=== PATIENT | male | born 1965 | race Caucasian/White ===

== ENCOUNTER 2017-07-15 11:07 | Outpatient (CLI) | payer BC ==
--- NOTE | 2017-07-15 13:41 | Diagnostic Imaging Report ---
Indication: Left-sided testicular pain x1 month Technique: US Testicular Scrotum Comparison: None Findings: Testicular size and symmetric. The right testicle measures 4.4 x 2.3 x 3.2 cm. The left testicle measures 4.4 x 2.4 x 3.4 cm. Both testicles demonstrate normal, homogeneous echogenicity. No focal testicular mass lesions are appreciated. Normal color and Doppler flow seen in the bilateral testicles. There is no evidence of testicular torsion. There are small bilateral varicoceles. Likely small bilateral hydroceles. Hydrocele on the right noted to have some internal echoes which may be artifactual within range of normal. There is a likely small epididymal cyst on the left. IMPRESSION: No evidence of testicular torsion. No testicular mass identified. Small bilateral varicoceles. Likely small bilateral hydroceles.
== END 2017-07-15 13:07 | disposition home or self-care (01) ==
LOC: RAD 11:07
DX: N50.812 Left testicular pain (principal); N43.3 Hydrocele, unspecified
CPT/HCPCS: 76870

== ENCOUNTER 2017-10-06 16:16 | Emergency (ER) | payer BC ==
[~2017-10-06] VITALS: Ht 175.3 cm; Wt 75.7 kg
[2017-10-06] MEDS ORDERED: CRESTOR40 MG ORAL (16:42)
[2017-10-06 16:50] VITALS: BP 142/74
[2017-10-06 17:57] LABS: APPEARANCE,URINE SLIGHTLY CLOUDY; BILIRUBIN, URINE NEGATIVE (NEGATIVE); COLOR,URINE AMBER; GLUCOSE, URINE (UA) NEGATIVE (NEGATIVE); KETONES,URINE 1+ (NEGATIVE); LEUKOCYTE ESTERASE ,URINE 1+ (NEGATIVE); NITRITE,URINE NEGATIVE (NEGATIVE); PH,URINE 6.5 (4.5-8.0); PROTEIN,URINE 2+ (NEGATIVE); UROBILINOGEN,URINE 1 MG/DL (0.0-1.0)
[2017-10-06 18:05] LABS: ANION GAP 10 mmol/L (5-15); BLOOD UREA NITROGEN 8 mg/dL (7-18); CALCIUM 9.6 MG/DL (8.5-10.1); CARBON DIOXIDE 28 MMOL/L (21-32); CHLORIDE 98 MMOL/L (98-107); POTASSIUM 3.4 MMOL/L (3.5-5.1); SODIUM 136 MMOL/L (136-145)
[2017-10-06 18:09] LABS: ALANINE AMINOTRANSFERASE 40 U/L (12-78); ALBUMIN 4.1 G/DL (3.4-5.0); ALKALINE PHOSPHATASE 66 U/L (46-116); ASPARTATE AMINO TRANSFERASE 31 U/L (15-37); BILIRUBIN,TOTAL 0.5 MG/DL (0.2-1.0); CREATINE KINASE 188 U/L (26-308)
[2017-10-06 18:21] LABS: BASOPHILS % (AUTO) 0.4 % (0.0-2.0); EOSINOPHILS % (AUTO) 0.1 % (0.0-3.0); HEMATOCRIT 45.8 % (42.0-52.0); HEMOGLOBIN 16.3 G/DL (14.2-18.0); LYMPHOCYTES % (AUTO) 12.2 % (20.0-45.0); MEAN CORPUSCULAR VOLUME 88 FL (80-99); MONOCYTES % (AUTO) 8.6 % (1.0-10.0); NEUTROPHILS % (AUTO) 78.7 % (45.0-75.0); PLATELET COUNT 162 K/UL (150-450); RED BLOOD COUNT 5.18 M/UL (4.70-6.10); RED CELL DISTRIBUTION WIDTH 11.7 % (11.6-14.8); WHITE BLOOD COUNT 8.8 K/UL (4.8-10.8)
[2017-10-06 18:45] VITALS: BP 137/81
--- NOTE | 2017-10-06 19:09 | Emergency Room Report ---
History of Present Illness General Chief Complaint: Fever Source: Patient Present Illness HPI 52 YO male presents to the ED C/o 12/30 in severity epigastric pain that is cramping in nature with associated N/V x 2 days. pt. also reports body aches and exacerbation of his chronic neck pain. pt. denies JEFFERY or photophobia. Denies diarrhea. Reports constipation since Thursday. denies blood in vomit, stool or dark tarry stools. He Denies trauma or fall. Denies numbness tingling or loss of sensation or gross motor movements of the extremities, incontinence of bowel or bladder. Denies CP, Palpitations, LOC, AMS, dizziness, Changes in Vision, weakness or a sudden severe headache. Allergies: Coded Allergies: LATEX (Verified Allergy, Unknown, 10/06/17) PENICILLINS (Verified Allergy, Unknown, 10/06/17) Patient History Past Medical History: see triage record Past Surgical History: none Pertinent Family History: none Reviewed Nursing Documentation: PMH: Agreed; PSxH: Agreed Review of Systems All Other Systems: negative except mentioned in HPI Physical Exam Vital Signs Date Time Temp Pulse Resp B/P (MAP) Pulse Ox O2 Delivery O2 Flow Rate FiO2 10/06/17 16:37 98.4 89 18 142/74 96 Room Air 98.4 Sp02 EP Interpretation: reviewed, normal General Appearance: no apparent distress, alert, GCS 15, non-toxic Head: normocephalic, atraumatic Eyes: bilateral eye normal inspection, bilateral eye PERRL ENT: hearing grossly normal, normal voice Neck: full range of motion, no meningismus, tender midline, other Respiratory: chest non-tender, lungs clear, normal breath sounds, no wheezing, speaking full sentences Cardiovascular #1: regular rate, rhythm, normal capillary refill Cardiovascular #2: 2+ radial (R), 2+ radial (L) Gastrointestinal: normal bowel sounds, non tender - no pain or tenderness at this time, soft, non-distended, no guarding Rectal: deferred Genitourinary: normal inspection, no CVA tenderness Musculoskeletal: back normal, gait/station normal, normal range of motion, non- tender Neurologic: alert, oriented x3, responsive, motor strength/tone normal, sensory intact, normal gait, speech normal, grossly normal Psychiatric: judgement/insight normal Skin: normal color, no rash, warm/dry, well hydrated Lymphatic: no adenopathy Medical Decision Making PA Attestation Dr. Rodríguez is my supervising Physician whom patient management has been discussed with. Diagnostic Impression: Primary Impression: Abdominal pain Qualified Codes: R10.13 - Epigastric pain Additional Impressions: Nausea & vomiting Qualified Codes: R11.2 - Nausea with vomiting, unspecified Dehydration, mild ER Course 52 YO male presents to the ED C/o 12/30 in severity epigastric pain that is cramping in nature with associated N/V x 2 days. pt. also reports body aches and exacerbation of his chronic neck pain. pt. denies JEFFERY or photophobia. Denies diarrhea. Reports constipation since Thursday. denies blood in vomit, stool or dark tarry stools. He Denies trauma or fall. Denies numbness tingling or loss of sensation or gross motor movements of the extremities, incontinence of bowel or bladder. Denies CP, Palpitations, LOC, AMS, dizziness, Changes in Vision, weakness or a sudden severe headache. Ddx considered but are not limited to Diverticulitis, acute appy, diarrhea,UC, PUD, GE, pancreatitis, gallstone Vital signs: are WNL, pt. is afebrile H&PE are most consistent with suspected gastritis will do lab work and consider imaging if indicated by labs. PE pt. is NAD non-toxic in appearance. No evidence of spinal chord compression or epidural abscess. pain located in area of previous chronic neck pain is per pt. ORDERS: -CBC, CMP, lipase, lactic acid, All WNL/unremarkable -UA: RBC's and occult blood, mucus as well, d/w attending physician UTI unlikely. ED INTERVENTIONS: -- 1000NS, GI Cocktail Pt continues to remain stable NAD, no complaints of pain at this time. able to tolerate oral fluids. stable for close outpatient follow up. DISCHARGE: At this time pt. is stable for d/c to home. Will provide printed patient care instructions, and any necessary prescriptions. Care plan and follow up instructions have been discussed with the patient prior to discharge. Labs Test 10/06/17 17:14 10/06/17 17:24 White Blood Count 8.8 K/UL (4.8-10.8) Red Blood Count 5.18 M/UL (4.70-6.10) Hemoglobin 16.3 G/DL (14.2-18.0) Hematocrit 45.8 % (42.0-52.0) Mean Corpuscular Volume 88 FL (80-99) Mean Corpuscular Hemoglobin 31.4 PG (27.0-31.0) Mean Corpuscular Hemoglobin Concent 35.5 G/DL (32.0-36.0) Red Cell Distribution Width 11.7 % (11.6-14.8) Platelet Count 162 K/UL (150-450) Mean Platelet Volume 6.1 FL (6.5-10.1) Neutrophils (%) (Auto) 78.7 % (45.0-75.0) Lymphocytes (%) (Auto) 12.2 % (20.0-45.0) Monocytes (%) (Auto) 8.6 % (1.0-10.0) Eosinophils (%) (Auto) 0.1 % (0.0-3.0) Basophils (%) (Auto) 0.4 % (0.0-2.0) Sodium Level 136 MMOL/L (136-145) Potassium Level 3.4 MMOL/L (3.5-5.1) Chloride Level 98 MMOL/L (98-107) Carbon Dioxide Level 28 MMOL/L (21-32) Anion Gap 10 mmol/L (5-15) Blood Urea Nitrogen 8 mg/dL (7-18) Creatinine 1.0 MG/DL (0.55-1.30) Estimat Glomerular Filtration Rate > 60 mL/min (>60) Glucose Level 100 MG/DL (74-106) Lactic Acid Level 1.10 mmol/L (0.4-2.0) Calcium Level 9.6 MG/DL (8.5-10.1) Total Bilirubin 0.5 MG/DL (0.2-1.0) Aspartate Amino Transf (AST/SGOT) 31 U/L (15-37) Alanine Aminotransferase (ALT/SGPT) 40 U/L (12-78) Alkaline Phosphatase 66 U/L (46-116) Total Creatine Kinase 188 U/L (26-308) Total Protein 8.3 G/DL (6.4-8.2) Albumin 4.1 G/DL (3.4-5.0) Globulin 4.2 g/dL Albumin/Globulin Ratio 1.0 (1.0-2.7) Lipase 161 U/L (73-393) Urine Color [place] Urine Appearance Slightly cloudy Urine pH 6.5 (4.5-8.0) Urine Specific [place] 1.010 (1.005-1.035) Urine Protein 2+ (NEGATIVE) Urine Glucose (UA) Negative (NEGATIVE) Urine Ketones 1+ (NEGATIVE) Urine Occult Blood 5+ (NEGATIVE) Urine Nitrite Negative (NEGATIVE) Urine Bilirubin Negative (NEGATIVE) Urine Ictotest Negative Urine Urobilinogen 1 MG/DL (0.0-1.0) Urine Leukocyte Esterase 1+ (NEGATIVE) Urine RBC 30-40 /HPF (0 - 0) Urine WBC 2-4 /HPF (0 - 0) Urine Squamous Epithelial Cells Occasional /LPF Urine Bacteria Few /HPF (NONE) Urine Mucus Moderate /LPF (NONE/OCC) Last Vital Signs Date Time Temp Pulse Resp B/P (MAP) Pulse Ox O2 Delivery O2 Flow Rate FiO2 10/06/17 16:50 98.4 96 18 142/74 96 Room Air 98.4 Disposition: HOME, SELF-CARE Condition: Stable Scripts Mag Hydrox/Al Hydrox/Simeth (ALUM-MAG HYDROXIDE-SIMETH LIQ) 360 Ml Oral.susp 10 ML PO BID, #360 ML Prov: Brea Ibanez 10/06/17 Docusate Sodium* (COLACE*) 100 Mg Capsule 100 MG ORAL THREE TIMES A DAY for 7 Days, #21 CAP Prov: Brea Ibanez 10/06/17 Referrals: JEAN CLAUDE SPICER D.O. (PCP) Patient Instructions: Abdominal Pain, Adult, [id number], Dehydration, Adult, [id number], Nausea and Vomiting, Adult, [id number] Additional Instructions: Take medications as directed. Follow up with a Primary Care Provider in 3-5 days, even if your symptoms have resolved. --Please review list of primary care clinics, if you do not already have a primary care provider Return sooner to ED if new symptoms occur, or current symptoms become worse. - Please note that this Emergency Department Report was dictated using [email or web address] technology software, occasionally this can lead to erroneous entry secondary to interpretation by the dictation equipment. Brea Ibanez Oct 06, 2017 19:09
[2017-10-06] MEDS ORDERED: COLACE100 MG ORAL (19:11)
[2017-10-06] MEDS ORDERED: ALUM-MAG HYDRO360 ML PO (19:11)
[2017-10-06] MEDS ORDERED: Mylanta II UD 30ml ORAL ONE (19:15)
[2017-10-06] MEDS ORDERED: Lidocaine 2% Visc 15ml soln ORAL ONE (19:15)
[2017-10-06 19:24] VITALS: BP 137/81
--- NOTE | 2017-10-07 08:57 | Diagnostic Imaging Report ---
Indication: Pain Technique: Supine view of the abdomen Comparison: none Findings: Bowel gas pattern is unremarkable. No unusual masses or calcifications. The bones are unremarkable Impression: Negative
== END 2017-10-06 19:24 | disposition home or self-care (01) ==
LOC: EMR 17:00
DX: R10.13 Epigastric pain (principal); R11.2 Nausea with vomiting, unspecified; E86.0 Dehydration; Z88.0 Allergy status to penicillin; Z91.040 Latex allergy status
CPT/HCPCS: 36415; 74018; 80053; 81003; 82550; 83605; 83690; 85025; 87040; 99284; J2405; S0028

== ENCOUNTER 2017-10-07 13:39 | Outpatient (CLI) | payer BC ==
[~2017-10-07 13:39] MED LIST: ALUM-MAG HYDRO360 ML PO; COLACE100 MG ORAL; CRESTOR40 MG ORAL
--- NOTE | 2017-10-07 16:17 | Diagnostic Imaging Report ---
Indication: Pelvic pain and hematuria Technique: Grayscale and duplex images of the kidneys, retroperitoneum, and bladder were obtained. Comparison: none Findings: Right kidney measures 10.9 cm in length. Left kidney measures 10.1 cm in length. Both kidneys demonstrate normal echogenicity. No hydronephrosis. Bright echoes in the renal sinuses are probably artifactual but could indicate small calcifications.. Normal inferior vena cava. Bladder is normal. Impression: Negative for hydronephrosis Bright echoes in the renal sinuses, probably artifactual but could indicate tiny nonobstructive calculi.
== END 2017-10-07 15:39 | disposition home or self-care (01) ==
LOC: ULS 13:39
DX: R10.2 Pelvic and perineal pain (principal); R31.9 Hematuria, unspecified
CPT/HCPCS: 76770

== ENCOUNTER 2017-10-08 15:47 | Inpatient (IN) | payer BC ==
[~2017-10-08] VITALS: Ht 175.3 cm; Wt 70.3 kg
--- NOTE | 2017-10-08 16:14 | Emergency Room Report ---
History of Present Illness General Chief Complaint: Nausea, Vomiting, and Diarrhea Source: Patient Present Illness HPI Patient present with complaints of persistent vomiting and diarrhea Patient has been here 2 days in a row with similar complaint He feels that his symptoms are persisting Patient has increased bloating sensation diffusely Has had several episodes of vomiting Reports that he is not able to keep any fluids down Denies any flank pain Denies any neck pain or photophobia Patient also has elevated fevers intermittently after Tylenol/Motrin were off Patient has had previous umbilical hernia surgery Allergies: Coded Allergies: LATEX (Verified Allergy, Unknown, 10/06/17) PENICILLINS (Verified Allergy, Unknown, 10/06/17) Patient History Past Medical History: see triage record Pertinent Family History: none Reviewed Nursing Documentation: PMH: Agreed; PSxH: Agreed Nursing Documentation-PMH Past Medical History: No History, Except For Review of Systems All Other Systems: negative except mentioned in HPI Physical Exam Vital Signs Date Time Temp Pulse Resp B/P (MAP) Pulse Ox O2 Delivery O2 Flow Rate FiO2 10/08/17 15:58 99.6 104 20 128/85 98 Room Air 99.7 Sp02 EP Interpretation: reviewed, normal General Appearance: mild distress - Appears uncomfortable Head: normocephalic, atraumatic Eyes: bilateral eye PERRL, bilateral eye EOMI ENT: dry mucus membranes Neck: supple, thyroid normal Respiratory: lungs clear, normal breath sounds Cardiovascular #1: normal peripheral pulses, regular rate, rhythm, no edema Gastrointestinal: other - Patient has a soft abdomen however diffusely uncomfortable on palpation, somewhat hyperactive bowel sounds are also noted Musculoskeletal: normal inspection Neurologic: alert, oriented x3, responsive Skin: other - Poor skin turgor Lymphatic: no adenopathy Medical Decision Making Diagnostic Impression: Primary Impression: Vomiting Additional Impression: Nausea, vomiting, and diarrhea ER Course With the history exam and presentation, multiple differentials considered, including but not limited to appendicitis, gastritis, cholecystitis, diverticulitis CT imaging shows questionable lower lobe infiltrate Also nonspecific abdominal findings It was mentioned that the appendix was on the upper limits of normal however no surrounding inflammation Patient will have general surgery consultation IV antibiotics were initiated and admitted for further care Labs Test 10/08/17 16:35 White Blood Count 10.3 K/UL (4.8-10.8) Red Blood Count 4.43 M/UL (4.70-6.10) Hemoglobin 14.1 G/DL (14.2-18.0) Hematocrit 38.1 % (42.0-52.0) Mean Corpuscular Volume 86 FL (80-99) Mean Corpuscular Hemoglobin 31.8 PG (27.0-31.0) Mean Corpuscular Hemoglobin Concent 37.1 G/DL (32.0-36.0) Red Cell Distribution Width 11.3 % (11.6-14.8) Platelet Count 152 K/UL (150-450) Mean Platelet Volume 5.8 FL (6.5-10.1) Neutrophils (%) (Auto) 85.6 % (45.0-75.0) Lymphocytes (%) (Auto) 7.4 % (20.0-45.0) Monocytes (%) (Auto) 6.3 % (1.0-10.0) Eosinophils (%) (Auto) 0.0 % (0.0-3.0) Basophils (%) (Auto) 0.7 % (0.0-2.0) Urine Color [place] Urine Appearance Clear Urine pH 9 (4.5-8.0) Urine Specific [place] 1.015 (1.005-1.035) Urine Protein 2+ (NEGATIVE) Urine Glucose (UA) Negative (NEGATIVE) Urine Ketones 4+ (NEGATIVE) Urine Occult Blood 4+ (NEGATIVE) Urine Nitrite Negative (NEGATIVE) Urine Bilirubin Negative (NEGATIVE) Urine Urobilinogen 1 MG/DL (0.0-1.0) Urine Leukocyte Esterase 1+ (NEGATIVE) Urine RBC 20-30 /HPF (0 - 0) Urine WBC 0-2 /HPF (0 - 0) Urine Squamous Epithelial Cells None /LPF (NONE/OCC) Urine Bacteria Occasional /HPF (NONE) Sodium Level 133 MMOL/L (136-145) Potassium Level 3.0 MMOL/L (3.5-5.1) Chloride Level 96 MMOL/L (98-107) Carbon Dioxide Level 22 MMOL/L (21-32) Anion Gap 16 mmol/L (5-15) Blood Urea Nitrogen 9 mg/dL (7-18) Creatinine 1.0 MG/DL (0.55-1.30) Estimat Glomerular Filtration Rate > 60 mL/min (>60) Glucose Level 110 MG/DL (74-106) Calcium Level 9.3 MG/DL (8.5-10.1) Total Bilirubin 0.7 MG/DL (0.2-1.0) Aspartate Amino Transf (AST/SGOT) 55 U/L (15-37) Alanine Aminotransferase (ALT/SGPT) 56 U/L (12-78) Alkaline Phosphatase 71 U/L (46-116) Total Protein 7.6 G/DL (6.4-8.2) Albumin 3.4 G/DL (3.4-5.0) Globulin 4.2 g/dL Albumin/Globulin Ratio 0.8 (1.0-2.7) Lipase 108 U/L (73-393) Rhythm Strip Diag. Results EP Interpretation: yes Rate: 77 Rhythm: NSR, no PVC's, no ectopy CT/MRI/US Diagnostic Results CT/MRI/US Diagnostic Results : Impression CT abdomen pelvisFluid-filled proximal small bowel. Difficult to exclude mild enteritis. No discrete transition point to indicate SBO. Colonic diverticulawithout diverticulitis Appendix is at the upper limits of normal for size, but no adjacent stranding to indicate appendicitis. Thickened distal esophagus. Incompletelyassessed groundglass infiltrate in the right lower lobe. Trace pericardial effusion Last Vital Signs Date Time Temp Pulse Resp B/P (MAP) Pulse Ox O2 Delivery O2 Flow Rate FiO2 10/08/17 15:58 99.6 104 20 128/85 98 Room Air 99.7 Status: improved Disposition: ADMITTED INPATIENT Condition: Serious Perla Mack DO Oct 08, 2017 16:14
[2017-10-08] MEDS ORDERED: Isovue-300 100ml vial INJ PRN (16:15)
[2017-10-08] MEDS ORDERED: Morphine Sulfate 4mg/ml Inj IVP ONE (16:15)
[2017-10-08] MEDS ORDERED: LORazepam Inj 2mg/ml 1ml IV ONE (16:15)
[2017-10-08 17:12] LABS: HEMATOCRIT 38.1 % (42.0-52.0); HEMOGLOBIN 14.1 G/DL (14.2-18.0); MEAN CORPUSCULAR VOLUME 86 FL (80-99); PLATELET COUNT 152 K/UL (150-450); RED BLOOD COUNT 4.43 M/UL (4.70-6.10); RED CELL DISTRIBUTION WIDTH 11.3 % (11.6-14.8); WHITE BLOOD COUNT 10.3 K/UL (4.8-10.8)
[2017-10-08 17:13] LABS: LYMPHOCYTES % (AUTO) 7.4 % (20.0-45.0); MONOCYTES % (AUTO) 6.3 % (1.0-10.0); NEUTROPHILS % (AUTO) 85.6 % (45.0-75.0)
[2017-10-08 17:14] LABS: BASOPHILS % (AUTO) 0.7 % (0.0-2.0)
[2017-10-08 17:28] VITALS: BP 128/85
[2017-10-08 17:28] LABS: APPEARANCE,URINE CLEAR; BILIRUBIN, URINE NEGATIVE (NEGATIVE); GLUCOSE, URINE (UA) NEGATIVE (NEGATIVE); KETONES,URINE 4+ (NEGATIVE); LEUKOCYTE ESTERASE ,URINE 1+ (NEGATIVE); NITRITE,URINE NEGATIVE (NEGATIVE); PH,URINE 9 (4.5-8.0); PROTEIN,URINE 2+ (NEGATIVE); UROBILINOGEN,URINE 1 MG/DL (0.0-1.0)
[2017-10-08 17:32] LABS: COLOR,URINE YELLOW
[2017-10-08 17:34] LABS: ANION GAP 16 mmol/L (5-15); BLOOD UREA NITROGEN 9 mg/dL (7-18); CALCIUM 9.3 MG/DL (8.5-10.1); CARBON DIOXIDE 22 MMOL/L (21-32); CHLORIDE 96 MMOL/L (98-107); SODIUM 133 MMOL/L (136-145)
[2017-10-08 17:45] LABS: ALANINE AMINOTRANSFERASE 56 U/L (12-78); ALBUMIN 3.4 G/DL (3.4-5.0); ALBUMIN/GLOBULIN RATIO 0.8 (1.0-2.7); ALKALINE PHOSPHATASE 71 U/L (46-116); ASPARTATE AMINO TRANSFERASE 55 U/L (15-37); BILIRUBIN,TOTAL 0.7 MG/DL (0.2-1.0)
[2017-10-08 20:00] VITALS: BP 132/75
--- NOTE | 2017-10-08 20:42 | Consultation ---
History of Present Illness General Date patient seen: Oct 08, 2017 Chief Complaint: Nausea, Vomiting, and Diarrhea Reason for Consultation: abdominal pain, n/v Present Illness HPI 52 year old male otherwise healthy presented to ED with complaints of abdominal pain, nausea, emesis, dehydration. States that 12 days ago he had developed vague generalized abdominal discomfort with associated nausea and emesis. Since he has come to ED for evaluation on two separate occasions and has been given IV fluids and discharged once symptoms resolved. He returns again today with similar complaints but states that now he cannot hold down any liquids and has fever and chills. Possible SBO. admitted for resuscitation and care. surgery called to evaluate. patient seen, chart reviewed, patient examined. history of umbilical hernia repair with mesh a few years ago but recurrence noted. inguinal hernia surgery when he was 7yo. has been constipated recently. used enema and evacuated foul smelling stool today prior to ED visit. Allergies: Coded Allergies: LATEX (Verified Allergy, Unknown, 10/06/17) PENICILLINS (Verified Allergy, Unknown, 10/06/17) Medication History Scheduled Docusate Sodium* (Colace*), 100 MG ORAL THREE TIMES A DAY Mag Hydrox/Al Hydrox/Simeth (Alum-Mag Hydroxide-Simeth Liq), 10 ML PO BID Rosuvastatin Calcium* (Crestor*), 40 MG ORAL DAILY, (Reported) Patient History History Provided By: Patient, Medical Record, PMD Healthcare decision maker Resuscitation status Advanced Directive on File Past Medical/Surgical History Past Medical/Surgical History: (1) History of umbilical hernia repair (2) SBO (small bowel obstruction) (3) Nausea, vomiting, and diarrhea (4) Vomiting Review of Systems All Other Systems: negative except mentioned in HPI Physical Exam General Appearance: no apparent distress, alert Lines, tubes and drains: peripheral HEENT: normocephalic, atraumatic, PERRL Neck: normal inspection Respiratory/Chest: normal breath sounds, no respiratory distress, no accessory muscle use Cardiovascular/Chest: regular rhythm Abdomen: non tender, soft, hypoactive bowel sounds, distended, hernia Genitourinary/Rectal: normal genital exam Extremities: normal inspection, no calf tenderness Neurologic: alert, oriented x 3, responsive Last 24 Hour Vital Signs Date Time Temp Pulse Resp B/P (MAP) Pulse Ox O2 Delivery O2 Flow Rate FiO2 10/08/17 19:28 99.0 100 20 128/85 98 Room Air 99.0 10/08/17 17:28 99.0 100 20 128/85 98 Room Air 99.0 10/08/17 17:03 99.0 10/08/17 16:33 99.6 10/08/17 15:58 99.6 104 20 128/85 98 Room Air 99.7 Laboratory Tests Test 10/08/17 16:35 White Blood Count 10.3 K/UL (4.8-10.8) Red Blood Count 4.43 M/UL (4.70-6.10) L Hemoglobin 14.1 G/DL (14.2-18.0) L Hematocrit 38.1 % (42.0-52.0) L Mean Corpuscular Volume 86 FL (80-99) Mean Corpuscular Hemoglobin 31.8 PG (27.0-31.0) H Mean Corpuscular Hemoglobin Concent 37.1 G/DL (32.0-36.0) H Red Cell Distribution Width 11.3 % (11.6-14.8) L Platelet Count 152 K/UL (150-450) Mean Platelet Volume 5.8 FL (6.5-10.1) L Neutrophils (%) (Auto) 85.6 % (45.0-75.0) H Lymphocytes (%) (Auto) 7.4 % (20.0-45.0) L Monocytes (%) (Auto) 6.3 % (1.0-10.0) Eosinophils (%) (Auto) 0.0 % (0.0-3.0) Basophils (%) (Auto) 0.7 % (0.0-2.0) Urine Color Yellow Urine Appearance Clear Urine pH 9 (4.5-8.0) Urine Specific [place] 1.015 (1.005-1.035) Urine Protein 2+ (NEGATIVE) H Urine Glucose (UA) Negative (NEGATIVE) Urine Ketones 4+ (NEGATIVE) H Urine Occult Blood 4+ (NEGATIVE) H Urine Nitrite Negative (NEGATIVE) Urine Bilirubin Negative (NEGATIVE) Urine Urobilinogen 1 MG/DL (0.0-1.0) H Urine Leukocyte Esterase 1+ (NEGATIVE) H Urine RBC 20-30 /HPF (0 - 0) H Urine WBC 0-2 /HPF (0 - 0) Urine Squamous Epithelial Cells None /LPF (NONE/OCC) Urine Bacteria Occasional /HPF (NONE) Sodium Level 133 MMOL/L (136-145) L Potassium Level 3.0 MMOL/L (3.5-5.1) L Chloride Level 96 MMOL/L (98-107) L Carbon Dioxide Level 22 MMOL/L (21-32) Anion Gap 16 mmol/L (5-15) H Blood Urea Nitrogen 9 mg/dL (7-18) Creatinine 1.0 MG/DL (0.55-1.30) Estimat Glomerular Filtration Rate > 60 mL/min (>60) Glucose Level 110 MG/DL (74-106) H Calcium Level 9.3 MG/DL (8.5-10.1) Total Bilirubin 0.7 MG/DL (0.2-1.0) Aspartate Amino Transf (AST/SGOT) 55 U/L (15-37) H Alanine Aminotransferase (ALT/SGPT) 56 U/L (12-78) Alkaline Phosphatase 71 U/L (46-116) Total Protein 7.6 G/DL (6.4-8.2) Albumin 3.4 G/DL (3.4-5.0) Globulin 4.2 g/dL Albumin/Globulin Ratio 0.8 (1.0-2.7) L Lipase 108 U/L (73-393) Height (Feet): 5 Height (Inches): 9.00 Weight (Pounds): 155 Medications Current Medications Medications (Trade) Dose Ordered Sig/Mark Route PRN Reason Start Time Stop Time Status Last Admin Dose Admin Iopamidol (Isovue-300 100ml) 100 ml NOW PRN INJ Radiology Procedure 10/08/17 16:15 Assessment/Plan Problem List: (1) SBO (small bowel obstruction) Assessment & Plan: 52 year old male with possible partial SBO. afebrile, HD stable, labs as above. exam with mild distention, hypoactive bowel sounds, umbilical hernia, no tenderness noted. -NPO -IV fluids -bowel rest -upper GI with small bowel study tomorrow -will follow with recs thank you for this consultation ICD Codes: K56.609 - Unspecified intestinal obstruction, unspecified as to partial versus complete obstruction SNOMED: 190984913 (2) Nausea, vomiting, and diarrhea ICD Codes: R11.2 - Nausea with vomiting, unspecified; R19.7 - Diarrhea, unspecified SNOMED: [id number] Status: stable Gucci Scales Oct 08, 2017 20:41
[2017-10-08] MEDS ORDERED: Mylanta II UD 30ml ORAL PRN (20:45)
[2017-10-08] MEDS ORDERED: Milk of Magnesia 30ml Ud ORAL PRN (20:45)
[2017-10-08] MEDS ORDERED: Morphine Sulfate 2mg/ml Inj IVP PRN (20:45)
[2017-10-08] MEDS: Heparin 5000 units/ml inj SUBQ SCH (21:00)
[2017-10-08] MEDS: Morphine Sulfate 2mg/ml Inj IVP PRN (21:28)
[2017-10-08] MEDS ORDERED: Acetaminophen 650 MG SUPP RECTAL PRN (22:15)
[2017-10-08] MEDS: D5 1/2NS w/KCl 40meq 1000ml 1,000 ML IV SCH (22:27)
[2017-10-09] VITALS: BP 127/72
[2017-10-09] MEDS: Metoclopramide 10mg/2ml Inj IVP PRN ×2 (03:58→12:58)
[2017-10-09 04:00] VITALS: BP 107/73
[2017-10-09 07:02] LABS: BASOPHILS % (AUTO) 0.2 % (0.0-2.0); EOSINOPHILS % (AUTO) 0.1 % (0.0-3.0); HEMATOCRIT 40.1 % (42.0-52.0); HEMOGLOBIN 14.1 G/DL (14.2-18.0); LYMPHOCYTES % (AUTO) 16.6 % (20.0-45.0); MEAN CORPUSCULAR VOLUME 89 FL (80-99); MONOCYTES % (AUTO) 9.4 % (1.0-10.0); NEUTROPHILS % (AUTO) 73.7 % (45.0-75.0); PLATELET COUNT 153 K/UL (150-450); RED BLOOD COUNT 4.52 M/UL (4.70-6.10); RED CELL DISTRIBUTION WIDTH 11.6 % (11.6-14.8); WHITE BLOOD COUNT 8.4 K/UL (4.8-10.8)
[2017-10-09 07:11] LABS: INR 1.1 (0.9-1.1)
[2017-10-09 07:39] LABS: ALANINE AMINOTRANSFERASE 53 U/L (12-78); ALBUMIN/GLOBULIN RATIO 0.8 (1.0-2.7); ALKALINE PHOSPHATASE 63 U/L (46-116); ANION GAP 8 mmol/L (5-15); ASPARTATE AMINO TRANSFERASE 44 U/L (15-37); BILIRUBIN,TOTAL 0.3 MG/DL (0.2-1.0); BLOOD UREA NITROGEN 7 mg/dL (7-18); CALCIUM 8.8 MG/DL (8.5-10.1); CARBON DIOXIDE 28 MMOL/L (21-32); CHLORIDE 102 MMOL/L (98-107); CHOLESTEROL 105 MG/DL (< 200); CREATININE 0.8 MG/DL (0.55-1.30); HDL CHOLESTEROL 27 MG/DL (40-60); POTASSIUM 3.8 MMOL/L (3.5-5.1); SODIUM 138 MMOL/L (136-145); TRIGLYCERIDES 95 MG/DL (30-150)
[2017-10-09 08:00] VITALS: BP 119/79
[2017-10-09] MEDS: D5 1/2NS w/KCl 40meq 1000ml 1,000 ML IV SCH ×2 (08:00→13:05)
--- NOTE | 2017-10-09 08:49 | Diagnostic Imaging Report ---
Clinical Indication: Abdominal pain x3 days Technique: No oral contrast utilized, per emergency room physician request IV administration nonionic contrast. Venous phase spiral acquisition obtained through the abdomen and pelvis. Multiplanar reconstructions were generated. Total dose length product 646.69 mGycm. CTDIvol(s) 11.56 mGy. Dose reduction achieved using automated exposure control Comparison: none Findings: Normal appendix. There are a few colonic diverticula. No evidence of diverticulitis. No small bowel distention. Some small bowel loops are fluid-filled. There is equivocal minimal wall thickening of the distal esophagus stomach, duodenum are unremarkable. The liver, gallbladder, bile ducts, pancreas, spleen, adrenals, kidneys are unremarkable. No retroperitoneal or mesenteric mass or adenopathy. No pelvic mass or adenopathy. The included lung bases demonstrate some atelectasis or consolidation on the right. The bones are unremarkable. Impression: Nonspecific fluid-filled small bowel loops without mir distention. The possibility of enteritis should be considered No acute abdominal or pelvic process otherwise Colonic diverticulosis. No evidence of diverticulitis. Right basilar pulmonary parenchymal atelectasis versus consolidation Very questionable wall thickening of the distal esophagus, if real could indicate mild esophagitis changes This agrees with the preliminary interpretation provided overnight by [facility] teleradiology service. The CT scanner at [facility] is accredited by the [employer] and the scans are performed using protocols designed to limit radiation exposure to as low as reasonably achievable to attain images of sufficient resolution adequate for diagnostic evaluation.
[2017-10-09] MEDS: Heparin 5000 units/ml inj SUBQ SCH ×2 (09:00→21:00)
[2017-10-09] MEDS: Morphine Sulfate 2mg/ml Inj IVP PRN (10:15)
--- NOTE | 2017-10-09 10:16 | GI Initial Consult Note ---
History of Present Illness General Date patient seen: Oct 09, 2017 Time patient seen: 15:59 Reason for Hospitalization: Nausea, Vomiting, and Diarrhea Referring physician: FERNANDO Reason for Consultation: SBO Present Illness HPI Patient present with complaints of persistent vomiting and diarrhea Patient has been here 2 days in a row with similar complaint He feels that his symptoms are persisting Patient has increased bloating sensation diffusely Has had several episodes of vomiting Reports that he is not able to keep any fluids down Denies any flank pain Denies any neck pain or photophobia Patient also has elevated fevers intermittently after Tylenol/Motrin were off Patient has had previous umbilical hernia surgery GI consulted for persistent vomiting/diarrhea r/o SBO. Pt seen, awake A&OX4 c/ o of severe nausea and diarrhea without vomiting. CT AP was performed that showed fluid filled small bowel loops concerning for possible SBO vs enteritis. A small bowel xray series followed to show negative for SBO, but instead showed rapid transit through the system. The patient also noted on the CT to have very questionable wall thickening of the distal esophagus, if real could indicate mild esophagitis changes. EGD/ colonoscopy approximately 1 or 2 years ago noted with 4 polyps. Home Meds Active Scripts Mag Hydrox/Al Hydrox/Simeth (ALUM-MAG HYDROXIDE-SIMETH LIQ) 360 Ml Oral.susp, 10 ML PO BID, #360 ML Prov:Brea Ibanez 10/06/17 Docusate Sodium* (COLACE*) 100 Mg Capsule, 100 MG ORAL THREE TIMES A DAY for 7 Days, #21 CAP Prov:Brea Ibanez 10/06/17 Reported Medications Rosuvastatin Calcium* (CRESTOR*) 40 Mg Tablet, 40 MG ORAL DAILY, TAB 10/06/17 Med list reviewed/reconciled: Yes Allergies: Coded Allergies: LATEX (Verified Allergy, Unknown, 10/06/17) PENICILLINS (Verified Allergy, Unknown, 10/06/17) Patient History History Provided By: Patient, Medical Record PMH Narrative Past Medical History: see triage record Pertinent Family History: none Reviewed Nursing Documentation: PMH: Agreed; PSxH: Agreed Nursing Documentation-PM Past Medical History: No History, Except For Social History: Denies: smoking, alcohol use, drug use, other Review of Systems All Other Systems: negative except mentioned in HPI Physical Exam Vital Signs Date Time Temp Pulse Resp B/P (MAP) Pulse Ox O2 Delivery O2 Flow Rate FiO2 10/08/17 15:58 99.6 104 20 128/85 98 Room Air 99.7 Sp02 EP Interpretation: reviewed, normal Labs Laboratory Tests Test 10/08/17 16:35 10/09/17 05:25 White Blood Count 10.3 K/UL (4.8-10.8) 8.4 K/UL (4.8-10.8) Red Blood Count 4.43 M/UL (4.70-6.10) L 4.52 M/UL (4.70-6.10) L Hemoglobin 14.1 G/DL (14.2-18.0) L 14.1 G/DL (14.2-18.0) L Hematocrit 38.1 % (42.0-52.0) L 40.1 % (42.0-52.0) L Mean Corpuscular Volume 86 FL (80-99) 89 FL (80-99) Mean Corpuscular Hemoglobin 31.8 PG (27.0-31.0) H 31.3 PG (27.0-31.0) H Mean Corpuscular Hemoglobin Concent 37.1 G/DL (32.0-36.0) H 35.3 G/DL (32.0-36.0) Red Cell Distribution Width 11.3 % (11.6-14.8) L 11.6 % (11.6-14.8) Platelet Count 152 K/UL (150-450) 153 K/UL (150-450) Mean Platelet Volume 5.8 FL (6.5-10.1) L 6.4 FL (6.5-10.1) L Neutrophils (%) (Auto) 85.6 % (45.0-75.0) H 73.7 % (45.0-75.0) Lymphocytes (%) (Auto) 7.4 % (20.0-45.0) L 16.6 % (20.0-45.0) L Monocytes (%) (Auto) 6.3 % (1.0-10.0) 9.4 % (1.0-10.0) Eosinophils (%) (Auto) 0.0 % (0.0-3.0) 0.1 % (0.0-3.0) Basophils (%) (Auto) 0.7 % (0.0-2.0) 0.2 % (0.0-2.0) Urine Color Yellow Urine Appearance Clear Urine pH 9 (4.5-8.0) Urine Specific [place] 1.015 (1.005-1.035) Urine Protein 2+ (NEGATIVE) H Urine Glucose (UA) Negative (NEGATIVE) Urine Ketones 4+ (NEGATIVE) H Urine Occult Blood 4+ (NEGATIVE) H Urine Nitrite Negative (NEGATIVE) Urine Bilirubin Negative (NEGATIVE) Urine Urobilinogen 1 MG/DL (0.0-1.0) H Urine Leukocyte Esterase 1+ (NEGATIVE) H Urine RBC 20-30 /HPF (0 - 0) H Urine WBC 0-2 /HPF (0 - 0) Urine Squamous Epithelial Cells None /LPF (NONE/OCC) Urine Bacteria Occasional /HPF (NONE) Sodium Level 133 MMOL/L (136-145) L 138 MMOL/L (136-145) Potassium Level 3.0 MMOL/L (3.5-5.1) L 3.8 MMOL/L (3.5-5.1) Chloride Level 96 MMOL/L (98-107) L 102 MMOL/L (98-107) Carbon Dioxide Level 22 MMOL/L (21-32) 28 MMOL/L (21-32) Anion Gap 16 mmol/L (5-15) H 8 mmol/L (5-15) Blood Urea Nitrogen 9 mg/dL (7-18) 7 mg/dL (7-18) Creatinine 1.0 MG/DL (0.55-1.30) 0.8 MG/DL (0.55-1.30) Estimat Glomerular Filtration Rate > 60 mL/min (>60) > 60 mL/min (>60) Glucose Level 110 MG/DL (74-106) H 117 MG/DL (74-106) H Calcium Level 9.3 MG/DL (8.5-10.1) 8.8 MG/DL (8.5-10.1) Total Bilirubin 0.7 MG/DL (0.2-1.0) 0.3 MG/DL (0.2-1.0) Aspartate Amino Transf (AST/SGOT) 55 U/L (15-37) H 44 U/L (15-37) H Alanine Aminotransferase (ALT/SGPT) 56 U/L (12-78) 53 U/L (12-78) Alkaline Phosphatase 71 U/L (46-116) 63 U/L (46-116) Total Protein 7.6 G/DL (6.4-8.2) 7.0 G/DL (6.4-8.2) Albumin 3.4 G/DL (3.4-5.0) 3.0 G/DL (3.4-5.0) L Globulin 4.2 g/dL 4.0 g/dL Albumin/Globulin Ratio 0.8 (1.0-2.7) L 0.8 (1.0-2.7) L Lipase 108 U/L (73-393) Prothrombin Time 11.2 SEC (9.30-11.50) Prothromb Time International Ratio 1.1 (0.9-1.1) Activated Partial Thromboplast Time 35 SEC (23-33) H Triglycerides Level 95 MG/DL (30-150) Cholesterol Level 105 MG/DL (< 200) LDL Cholesterol 67 mg/dL (<100) HDL Cholesterol 27 MG/DL (40-60) L Cholesterol/HDL Ratio 3.9 (3.3-4.4) General Appearance: well appearing, no apparent distress, alert Head: normocephalic EENT: PERRL/EOMI, normal ENT inspection Neck: supple Respiratory: normal breath sounds, no respiratory distress Cardiovascular: normal rate Gastrointestinal: normal inspection, non tender, soft, normal bowel sounds, non -distended Rectal: deferred Genitourinary: deferred Musculoskeletal: normal inspection, back normal Neurologic: normal inspection, alert, oriented x3, responsive Psychiatric: normal inspection, judgement/insight normal, memory normal Skin: normal inspection, normal color, no rash, warm/dry, palpation normal, well hydrated Lymphatic: normal inspection, no adenopathy Current Medications Current Medications Medications (Trade) Dose Ordered Sig/Mark Route PRN Reason Start Time Stop Time Status Last Admin Dose Admin Acetaminophen (Tylenol) 650 mg Q4H PRN ORAL fever (temp>100.5F) 10/08/17 20:45 11/07/17 20:44 Acetaminophen (Tylenol) 650 mg Q4H PRN RECTAL Prn Headache/Temp > 101 10/08/17 22:15 11/07/17 22:14 10/08/17 22:46 Al Hydroxide/Mg Hydroxide (Mylanta II) 30 ml Q6H PRN ORAL dyspepsia 10/08/17 20:45 11/07/17 20:44 Dextrose (Dextrose 50%) 25 ml STAT PRN IV Hypoglycemia 10/08/17 20:45 11/07/17 20:44 Dextrose (Dextrose 50%) 50 ml STAT PRN IV Hypoglycemia 10/08/17 20:45 11/07/17 20:44 Dextrose/ Electrolytes 1,000 ml @ 100 mls/hr Q10H IV 10/08/17 22:00 11/07/17 21:59 10/08/17 22:27 Diphenhydramine HCl (Benadryl) 25 mg Q6H PRN ORAL Itching/Pruritis 10/08/17 20:45 11/07/17 20:44 Famotidine (Pepcid I.v.) 20 mg Q12HR IVP 10/08/17 22:00 11/07/17 21:59 10/09/17 08:25 Heparin Sodium (Porcine) (Heparin 5000 units/ml) 5,000 units EVERY 12 HOURS SUBQ 10/08/17 21:00 11/07/17 20:59 Iopamidol (Isovue-300 100ml) 100 ml NOW PRN INJ Radiology Procedure 10/08/17 16:15 Levofloxacin 100 ml @ 100 mls/hr Q24H IVPB 10/09/17 18:00 10/16/17 17:59 Magnesium Hydroxide (Mom) 30 ml HSPRN PRN ORAL Constipation 10/08/17 20:45 11/07/17 20:44 Metoclopramide HCl (Reglan) 10 mg Q6H PRN IVP Nausea & Vomiting 10/08/17 20:45 11/07/17 20:44 10/09/17 03:58 Metronidazole 100 ml @ 100 mls/hr Q8HR IVPB 10/08/17 22:00 10/15/17 21:59 10/09/17 06:06 Morphine Sulfate (Morphine Sulfate) 1 mg Q4H PRN IVP Mild Pain (Pain Scale 1-3) 10/08/17 20:45 10/15/17 20:44 Morphine Sulfate (Morphine Sulfate) 2 mg Q4H PRN IVP Moderate Pain (Pain Scale 4-6) 10/08/17 20:45 10/15/17 20:44 10/09/17 10:15 Ondansetron HCl (Zofran) 4 mg Q6H PRN IVP Nausea & Vomiting 10/08/17 20:45 11/07/17 20:44 10/09/17 10:08 Temazepam (Restoril) 15 mg HSPRN PRN ORAL Insomnia 10/08/17 20:45 10/15/17 20:44 10/08/17 22:49 GI: Plan Problems: (1) Enteritis (2) Diarrhea (3) SBO (small bowel obstruction) (4) Vomiting (5) Nausea, vomiting, and diarrhea Plan CT AP reviewed >> possible enteritis vs SBO. possible mild esophagitis. SBFT reviewed >> no SBO, rapid transit will consider EGD thursday if patient has persistent vomiting CLD, adv as tolerated to regular diet send for stool studies/cdiff/O&P H2B zofran prn, compazine for severe nausea electrolyte correction IV/PO hydration fu labs Discussed with Dr. Scott. Thank you for this patient referral, we will follow. The patient was seen and examined at bedside and all new and available data was reviewed in the patients chart. I agree with the above findings, impression and plan. (Patient seen earlier today. Signature stamp does not reflect patient encounter time.). - MD Linda RodriguezBanner Baywood Medical CenterLeydi ELECTRICAL AND INSTRUMENT ENGINEER Oct 09, 2017 10:16
[2017-10-09 12:00] VITALS: BP 130/88
--- NOTE | 2017-10-09 12:02 | Diagnostic Imaging Report ---
Indication: Abdominal pain Technique: Patient ingested water-soluble contrast. Serial images obtained over the abdomen. Total fluoroscopy time 0.9 minutes. 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 No unusual masses or calcifications. After contrast ingestion, is extremely rapid transit of contrast throughout the small bowel, with contrast seen throughout the entirety of the colon and small bowel on the 15 minute film. Small bowel caliber is normal. Small bowel mucosal pattern is normal. There is evidence of colonic diverticulosis. The terminal ileum is unremarkable. Impression: Negative for evidence of small bowel obstruction. Extremely rapid transit of contrast throughout the GI tract, with contrast filling the entire GI tract at 15 minutes Colonic diverticulosis, also described on prior CT
--- NOTE | 2017-10-09 15:26 | History and Physical ---
History of Present Illness General Date patient seen: Oct 09, 2017 Reason for Hospitalization: Nausea, Vomiting, and Diarrhea Present Illness HPI 52 year old male otherwise healthy presented to ED with complaints of abdominal pain, nausea, emesis, dehydration. States that 12 days ago he had developed vague generalized abdominal discomfort with associated nausea and emesis. Since he has come to ED for evaluation on two separate occasions and has been given IV fluids and discharged once symptoms resolved. He returns again today with similar complaints but states that now he cannot hold down any liquids and has fever and chills. history of umbilical hernia repair with mesh a few years ago but recurrence noted. inguinal hernia surgery when he was 7yo. Patient states that he has not had a bowel movement for 2 weeks but for the last 1 day has had diarrhea likely since the administration of the contrast. CT a/p showed fluid-filled dilated small bowel loops with possible mild enteritis. Today, patient continues to report nausea and vomiting with diarrhea. Patient had a reported fever of 102 last night but no f/c today. Denies cp, sob. Allergies: Coded Allergies: LATEX (Verified Allergy, Unknown, 10/06/17) PENICILLINS (Verified Allergy, Unknown, 10/06/17) Medication History Scheduled Docusate Sodium* (Colace*), 100 MG ORAL THREE TIMES A DAY Mag Hydrox/Al Hydrox/Simeth (Alum-Mag Hydroxide-Simeth Liq), 10 ML PO BID Rosuvastatin Calcium* (Crestor*), 40 MG ORAL DAILY, (Reported) Patient History Healthcare decision maker Resuscitation status Full Code Advanced Directive on File Review of Systems All Other Systems: negative except mentioned in HPI Physical Exam General Appearance: no apparent distress, alert HEENT: normocephalic, atraumatic Neck: non-tender, normal alignment, supple Respiratory/Chest: chest wall non-tender, lungs clear, normal breath sounds Cardiovascular/Chest: normal peripheral pulses, normal rate, regular rhythm Abdomen: soft, hypoactive bowel sounds, tender Extremities: normal range of motion, non-tender Skin Exam: normal pigmentation, warm/dry 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, no motor/sensory deficits, alert, oriented x 3 Last 24 Hour Vital Signs Date Time Temp Pulse Resp B/P (MAP) Pulse Ox O2 Delivery O2 Flow Rate FiO2 10/09/17 10:45 98.3 10/09/17 10:15 98.3 10/09/17 09:00 Room Air 10/09/17 08:00 98.3 71 20 119/79 (92) 98 98.3 10/09/17 04:00 98.0 75 20 107/73 (84) 99 98.0 10/09/17 00:00 99.3 97 20 127/72 (90) 96 99.3 10/08/17 23:39 Room Air 10/08/17 23:16 99.3 10/08/17 22:46 102.4 10/08/17 21:00 Room Air 10/08/17 20:00 102.4 100 20 132/75 (94) 98 102.4 92 10/08/17 19:28 99.0 100 20 128/85 98 Room Air 99.0 10/08/17 17:28 99.0 100 20 128/85 98 Room Air 99.0 10/08/17 17:03 99.0 10/08/17 16:33 99.6 10/08/17 15:58 99.6 104 20 128/85 98 Room Air 99.7 Intake and Output 10/08/17 10/09/17 19:00 07:00 Intake Total 700 ml Output Total 1500 ml Balance -800 ml Intake IV Total 700 ml Output Urine Total 1500 ml # Voids 1 4 Laboratory Tests Test 10/08/17 16:35 10/09/17 05:25 White Blood Count 10.3 K/UL (4.8-10.8) 8.4 K/UL (4.8-10.8) Red Blood Count 4.43 M/UL (4.70-6.10) L 4.52 M/UL (4.70-6.10) L Hemoglobin 14.1 G/DL (14.2-18.0) L 14.1 G/DL (14.2-18.0) L Hematocrit 38.1 % (42.0-52.0) L 40.1 % (42.0-52.0) L Mean Corpuscular Volume 86 FL (80-99) 89 FL (80-99) Mean Corpuscular Hemoglobin 31.8 PG (27.0-31.0) H 31.3 PG (27.0-31.0) H Mean Corpuscular Hemoglobin Concent 37.1 G/DL (32.0-36.0) H 35.3 G/DL (32.0-36.0) Red Cell Distribution Width 11.3 % (11.6-14.8) L 11.6 % (11.6-14.8) Platelet Count 152 K/UL (150-450) 153 K/UL (150-450) Mean Platelet Volume 5.8 FL (6.5-10.1) L 6.4 FL (6.5-10.1) L Neutrophils (%) (Auto) 85.6 % (45.0-75.0) H 73.7 % (45.0-75.0) Lymphocytes (%) (Auto) 7.4 % (20.0-45.0) L 16.6 % (20.0-45.0) L Monocytes (%) (Auto) 6.3 % (1.0-10.0) 9.4 % (1.0-10.0) Eosinophils (%) (Auto) 0.0 % (0.0-3.0) 0.1 % (0.0-3.0) Basophils (%) (Auto) 0.7 % (0.0-2.0) 0.2 % (0.0-2.0) Urine Color Yellow Urine Appearance Clear Urine pH 9 (4.5-8.0) Urine Specific [place] 1.015 (1.005-1.035) Urine Protein 2+ (NEGATIVE) H Urine Glucose (UA) Negative (NEGATIVE) Urine Ketones 4+ (NEGATIVE) H Urine Occult Blood 4+ (NEGATIVE) H Urine Nitrite Negative (NEGATIVE) Urine Bilirubin Negative (NEGATIVE) Urine Urobilinogen 1 MG/DL (0.0-1.0) H Urine Leukocyte Esterase 1+ (NEGATIVE) H Urine RBC 20-30 /HPF (0 - 0) H Urine WBC 0-2 /HPF (0 - 0) Urine Squamous Epithelial Cells None /LPF (NONE/OCC) Urine Bacteria Occasional /HPF (NONE) Sodium Level 133 MMOL/L (136-145) L 138 MMOL/L (136-145) Potassium Level 3.0 MMOL/L (3.5-5.1) L 3.8 MMOL/L (3.5-5.1) Chloride Level 96 MMOL/L (98-107) L 102 MMOL/L (98-107) Carbon Dioxide Level 22 MMOL/L (21-32) 28 MMOL/L (21-32) Anion Gap 16 mmol/L (5-15) H 8 mmol/L (5-15) Blood Urea Nitrogen 9 mg/dL (7-18) 7 mg/dL (7-18) Creatinine 1.0 MG/DL (0.55-1.30) 0.8 MG/DL (0.55-1.30) Estimat Glomerular Filtration Rate > 60 mL/min (>60) > 60 mL/min (>60) Glucose Level 110 MG/DL (74-106) H 117 MG/DL (74-106) H Calcium Level 9.3 MG/DL (8.5-10.1) 8.8 MG/DL (8.5-10.1) Total Bilirubin 0.7 MG/DL (0.2-1.0) 0.3 MG/DL (0.2-1.0) Aspartate Amino Transf (AST/SGOT) 55 U/L (15-37) H 44 U/L (15-37) H Alanine Aminotransferase (ALT/SGPT) 56 U/L (12-78) 53 U/L (12-78) Alkaline Phosphatase 71 U/L (46-116) 63 U/L (46-116) Total Protein 7.6 G/DL (6.4-8.2) 7.0 G/DL (6.4-8.2) Albumin 3.4 G/DL (3.4-5.0) 3.0 G/DL (3.4-5.0) L Globulin 4.2 g/dL 4.0 g/dL Albumin/Globulin Ratio 0.8 (1.0-2.7) L 0.8 (1.0-2.7) L Lipase 108 U/L (73-393) Prothrombin Time 11.2 SEC (9.30-11.50) Prothromb Time International Ratio 1.1 (0.9-1.1) Activated Partial Thromboplast Time 35 SEC (23-33) H Triglycerides Level 95 MG/DL (30-150) Cholesterol Level 105 MG/DL (< 200) LDL Cholesterol 67 mg/dL (<100) HDL Cholesterol 27 MG/DL (40-60) L Cholesterol/HDL Ratio 3.9 (3.3-4.4) Microbiology Date/Time Source Procedure Growth Status 10/08/17 20:00 Rectum Received Height (Feet): 5 Height (Inches): 9.00 Weight (Pounds): 155 Medications Current Medications Medications (Trade) Dose Ordered Sig/Mark Route PRN Reason Start Time Stop Time Status Last Admin Dose Admin Acetaminophen (Tylenol) 650 mg Q4H PRN ORAL fever (temp>100.5F) 10/08/17 20:45 11/07/17 20:44 Acetaminophen (Tylenol) 650 mg Q4H PRN RECTAL Prn Headache/Temp > 101 10/08/17 22:15 11/07/17 22:14 10/08/17 22:46 Al Hydroxide/Mg Hydroxide (Mylanta II) 30 ml Q6H PRN ORAL dyspepsia 10/08/17 20:45 11/07/17 20:44 Dextrose (Dextrose 50%) 25 ml STAT PRN IV Hypoglycemia 10/08/17 20:45 11/07/17 20:44 Dextrose (Dextrose 50%) 50 ml STAT PRN IV Hypoglycemia 10/08/17 20:45 11/07/17 20:44 Dextrose/ Electrolytes 1,000 ml @ 100 mls/hr Q10H IV 10/08/17 22:00 11/07/17 21:59 10/09/17 13:05 Diphenhydramine HCl (Benadryl) 25 mg Q6H PRN ORAL Itching/Pruritis 10/08/17 20:45 11/07/17 20:44 Famotidine (Pepcid I.v.) 20 mg Q12HR IVP 10/08/17 22:00 11/07/17 21:59 10/09/17 08:25 Heparin Sodium (Porcine) (Heparin 5000 units/ml) 5,000 units EVERY 12 HOURS SUBQ 10/08/17 21:00 11/07/17 20:59 Iopamidol (Isovue-300 100ml) 100 ml NOW PRN INJ Radiology Procedure 10/08/17 16:15 10/10/17 16:14 Levofloxacin 100 ml @ 100 mls/hr Q24H IVPB 10/09/17 18:00 10/16/17 17:59 Magnesium Hydroxide (Mom) 30 ml HSPRN PRN ORAL Constipation 10/08/17 20:45 11/07/17 20:44 Metoclopramide HCl (Reglan) 10 mg Q6H PRN IVP Nausea & Vomiting 10/08/17 20:45 11/07/17 20:44 10/09/17 12:58 Metronidazole 100 ml @ 100 mls/hr Q8HR IVPB 10/08/17 22:00 10/15/17 21:59 10/09/17 13:04 Morphine Sulfate (Morphine Sulfate) 1 mg Q4H PRN IVP Mild Pain (Pain Scale 1-3) 10/08/17 20:45 10/15/17 20:44 Morphine Sulfate (Morphine Sulfate) 2 mg Q4H PRN IVP Moderate Pain (Pain Scale 4-6) 10/08/17 20:45 10/15/17 20:44 10/09/17 10:15 Ondansetron HCl (Zofran) 4 mg Q6H PRN IVP Nausea & Vomiting 10/08/17 20:45 11/07/17 20:44 10/09/17 10:08 Prochlorperazine (Compazine) 10 mg Q6H PRN IM Nausea & Vomiting 10/09/17 13:45 11/08/17 13:44 Temazepam (Restoril) 15 mg HSPRN PRN ORAL Insomnia 10/08/17 20:45 10/15/17 20:44 10/08/17 22:49 Assessment/Plan Problem List: (1) Proteinuria ICD Codes: R80.9 - Proteinuria, unspecified SNOMED: 15187592 (2) Nausea, vomiting, and diarrhea ICD Codes: R11.2 - Nausea with vomiting, unspecified; R19.7 - Diarrhea, unspecified SNOMED: 4315458 (3) History of umbilical hernia repair ICD Codes: Z98.890 - Other specified postprocedural states; Z87.19 - Personal history of other diseases of the digestive system SNOMED: 923968105 Status: stable, progressing Assessment/Plan - Admit to inpatient - GI and general surgery consulted - IV levaquin and flagyl - CT a/p reviewed - f/u XR small bowel series - 2+ proteins noted in urine. Consider further outpatient workup and repeat UA - f/u stool culture, ova and parasites, WBC in stool, C. diff - possible EgD on Thursday - NPO - IVF - pain control, antiemetics, and supportive care DVT ppx: HSQ d/w PCP, Dr. Gamez. D/w patient, RN, GI, and surgery. Guillermina Cyr NP Oct 09, 2017 15:26
[2017-10-09 16:00] VITALS: BP 133/90
--- NOTE | 2017-10-09 16:14 | General Surgery Progress Note ---
General Surgery-Progress Note Subjective Symptoms: improved Additional Comments doing better. does not feel as if he is ready to eat. GI study went well. Objective Last 24 Hour Vital Signs Date Time Temp Pulse Resp B/P (MAP) Pulse Ox O2 Delivery O2 Flow Rate FiO2 10/09/17 12:00 98.2 78 22 130/88 (102) 97 98.2 10/09/17 10:45 98.3 10/09/17 10:15 98.3 10/09/17 09:00 Room Air 10/09/17 08:00 98.3 71 20 119/79 (92) 98 98.3 10/09/17 04:00 98.0 75 20 107/73 (84) 99 98.0 10/09/17 00:00 99.3 97 20 127/72 (90) 96 99.3 10/08/17 23:39 Room Air 10/08/17 23:16 99.3 10/08/17 22:46 102.4 10/08/17 21:00 Room Air 10/08/17 20:00 102.4 100 20 132/75 (94) 98 102.4 92 10/08/17 19:28 99.0 100 20 128/85 98 Room Air 99.0 10/08/17 17:28 99.0 100 20 128/85 98 Room Air 99.0 10/08/17 17:03 99.0 10/08/17 16:33 99.6 I&O Intake and Output 10/08/17 10/09/17 19:00 07:00 Intake Total 700 ml Output Total 1500 ml Balance -800 ml Intake IV Total 700 ml Output Urine Total 1500 ml # Voids 1 4 Drains: none Cardiovascular: RSR Respiratory: clear Abdomen: soft, flat, non-tender, present bowel sounds Extremities: no cyanosis Laboratory Tests Test 10/08/17 16:35 10/09/17 05:25 White Blood Count 10.3 K/UL (4.8-10.8) 8.4 K/UL (4.8-10.8) Red Blood Count 4.43 M/UL (4.70-6.10) L 4.52 M/UL (4.70-6.10) L Hemoglobin 14.1 G/DL (14.2-18.0) L 14.1 G/DL (14.2-18.0) L Hematocrit 38.1 % (42.0-52.0) L 40.1 % (42.0-52.0) L Mean Corpuscular Volume 86 FL (80-99) 89 FL (80-99) Mean Corpuscular Hemoglobin 31.8 PG (27.0-31.0) H 31.3 PG (27.0-31.0) H Mean Corpuscular Hemoglobin Concent 37.1 G/DL (32.0-36.0) H 35.3 G/DL (32.0-36.0) Red Cell Distribution Width 11.3 % (11.6-14.8) L 11.6 % (11.6-14.8) Platelet Count 152 K/UL (150-450) 153 K/UL (150-450) Mean Platelet Volume 5.8 FL (6.5-10.1) L 6.4 FL (6.5-10.1) L Neutrophils (%) (Auto) 85.6 % (45.0-75.0) H 73.7 % (45.0-75.0) Lymphocytes (%) (Auto) 7.4 % (20.0-45.0) L 16.6 % (20.0-45.0) L Monocytes (%) (Auto) 6.3 % (1.0-10.0) 9.4 % (1.0-10.0) Eosinophils (%) (Auto) 0.0 % (0.0-3.0) 0.1 % (0.0-3.0) Basophils (%) (Auto) 0.7 % (0.0-2.0) 0.2 % (0.0-2.0) Urine Color Yellow Urine Appearance Clear Urine pH 9 (4.5-8.0) Urine Specific [place] 1.015 (1.005-1.035) Urine Protein 2+ (NEGATIVE) H Urine Glucose (UA) Negative (NEGATIVE) Urine Ketones 4+ (NEGATIVE) H Urine Occult Blood 4+ (NEGATIVE) H Urine Nitrite Negative (NEGATIVE) Urine Bilirubin Negative (NEGATIVE) Urine Urobilinogen 1 MG/DL (0.0-1.0) H Urine Leukocyte Esterase 1+ (NEGATIVE) H Urine RBC 20-30 /HPF (0 - 0) H Urine WBC 0-2 /HPF (0 - 0) Urine Squamous Epithelial Cells None /LPF (NONE/OCC) Urine Bacteria Occasional /HPF (NONE) Sodium Level 133 MMOL/L (136-145) L 138 MMOL/L (136-145) Potassium Level 3.0 MMOL/L (3.5-5.1) L 3.8 MMOL/L (3.5-5.1) Chloride Level 96 MMOL/L (98-107) L 102 MMOL/L (98-107) Carbon Dioxide Level 22 MMOL/L (21-32) 28 MMOL/L (21-32) Anion Gap 16 mmol/L (5-15) H 8 mmol/L (5-15) Blood Urea Nitrogen 9 mg/dL (7-18) 7 mg/dL (7-18) Creatinine 1.0 MG/DL (0.55-1.30) 0.8 MG/DL (0.55-1.30) Estimat Glomerular Filtration Rate > 60 mL/min (>60) > 60 mL/min (>60) Glucose Level 110 MG/DL (74-106) H 117 MG/DL (74-106) H Calcium Level 9.3 MG/DL (8.5-10.1) 8.8 MG/DL (8.5-10.1) Total Bilirubin 0.7 MG/DL (0.2-1.0) 0.3 MG/DL (0.2-1.0) Aspartate Amino Transf (AST/SGOT) 55 U/L (15-37) H 44 U/L (15-37) H Alanine Aminotransferase (ALT/SGPT) 56 U/L (12-78) 53 U/L (12-78) Alkaline Phosphatase 71 U/L (46-116) 63 U/L (46-116) Total Protein 7.6 G/DL (6.4-8.2) 7.0 G/DL (6.4-8.2) Albumin 3.4 G/DL (3.4-5.0) 3.0 G/DL (3.4-5.0) L Globulin 4.2 g/dL 4.0 g/dL Albumin/Globulin Ratio 0.8 (1.0-2.7) L 0.8 (1.0-2.7) L Lipase 108 U/L (73-393) Prothrombin Time 11.2 SEC (9.30-11.50) Prothromb Time International Ratio 1.1 (0.9-1.1) Activated Partial Thromboplast Time 35 SEC (23-33) H Triglycerides Level 95 MG/DL (30-150) Cholesterol Level 105 MG/DL (< 200) LDL Cholesterol 67 mg/dL (<100) HDL Cholesterol 27 MG/DL (40-60) L Cholesterol/HDL Ratio 3.9 (3.3-4.4) Plan Problems: (1) SBO (small bowel obstruction) Assessment & Plan: 52 year old male with possible partial SBO. afebrile, HD stable, labs as above. exam with mild distention, hypoactive bowel sounds, umbilical hernia, no tenderness noted. CT okay small bowel follow through went okay. no obstruction. passing flatus. +BM exam benign. labs okay -okay to start oral diet. patient feels he is not ready yet. can start at his own rate. -IV fluids -will follow with recs thank you for this consultation (2) Nausea, vomiting, and diarrhea [facility] Oct 09, 2017 16:14
[2017-10-09] MEDS ORDERED: Tubing IV Secondary IV ONE (17:16)
[2017-10-09 20:00] VITALS: BP 123/83
[2017-10-10] VITALS: BP 123/87
[2017-10-10] MEDS: D5 1/2NS w/KCl 40meq 1000ml 1,000 ML IV SCH ×2 (03:36→13:32)
[2017-10-10 04:00] VITALS: BP 118/72
[2017-10-10] MEDS: Morphine Sulfate 2mg/ml Inj IVP PRN (04:49)
[2017-10-10 06:36] LABS: BASOPHILS % (AUTO) 0.5 % (0.0-2.0); EOSINOPHILS % (AUTO) 0.3 % (0.0-3.0); HEMATOCRIT 38.3 % (42.0-52.0); HEMOGLOBIN 13.4 G/DL (14.2-18.0); LYMPHOCYTES % (AUTO) 20.4 % (20.0-45.0); MEAN CORPUSCULAR VOLUME 88 FL (80-99); MONOCYTES % (AUTO) 13.7 % (1.0-10.0); NEUTROPHILS % (AUTO) 65.1 % (45.0-75.0); PLATELET COUNT 180 K/UL (150-450); RED BLOOD COUNT 4.38 M/UL (4.70-6.10); RED CELL DISTRIBUTION WIDTH 11.5 % (11.6-14.8); WHITE BLOOD COUNT 6.1 K/UL (4.8-10.8)
[2017-10-10 06:56] LABS: ALANINE AMINOTRANSFERASE 77 U/L (12-78); ALBUMIN/GLOBULIN RATIO 0.8 (1.0-2.7); ALKALINE PHOSPHATASE 57 U/L (46-116); ANION GAP 11 mmol/L (5-15); ASPARTATE AMINO TRANSFERASE 72 U/L (15-37); BILIRUBIN,TOTAL 0.3 MG/DL (0.2-1.0); BLOOD UREA NITROGEN 8 mg/dL (7-18); CALCIUM 8.8 MG/DL (8.5-10.1); CARBON DIOXIDE 24 MMOL/L (21-32); CHLORIDE 101 MMOL/L (98-107); CREATININE 0.7 MG/DL (0.55-1.30); POTASSIUM 3.4 MMOL/L (3.5-5.1); SODIUM 135 MMOL/L (136-145)
[2017-10-10 08:00] VITALS: BP 112/78
--- NOTE | 2017-10-10 08:06 | General Progress Note ---
Assessment/Plan Problem List: (1) Diarrhea ICD Codes: R19.7 - Diarrhea, unspecified SNOMED: 38213749 (2) Vomiting ICD Codes: R11.10 - Vomiting, unspecified SNOMED: 612114328 (3) Nausea, vomiting, and diarrhea ICD Codes: R11.2 - Nausea with vomiting, unspecified; R19.7 - Diarrhea, unspecified SNOMED: 2058463 (4) History of umbilical hernia repair ICD Codes: Z98.890 - Other specified postprocedural states; Z87.19 - Personal history of other diseases of the digestive system SNOMED: 639926260 Assessment/Plan advance diet to full liquid stool studies drug screen repeat labs Subjective ROS Limited/Unobtainable: Yes Allergies: Coded Allergies: LATEX (Verified Allergy, Unknown, 10/06/17) PENICILLINS (Verified Allergy, Unknown, 10/06/17) Subjective still c/o nausea Objective Last 24 Hour Vital Signs Date Time Temp Pulse Resp B/P (MAP) Pulse Ox O2 Delivery O2 Flow Rate FiO2 10/10/17 04:00 98.3 68 19 118/72 (87) 96 98.3 10/10/17 00:00 99.1 72 19 123/87 (99) 100 99.1 10/09/17 21:00 Room Air 10/09/17 20:00 99.6 71 19 123/83 (96) 97 99.6 10/09/17 16:00 98.5 77 18 133/90 (104) 98 98.5 10/09/17 12:00 98.2 78 22 130/88 (102) 97 98.2 10/09/17 10:45 98.3 10/09/17 10:15 98.3 10/09/17 09:00 Room Air Intake and Output 10/09/17 10/10/17 19:00 07:00 Intake Total 300 ml 1140 ml Balance 300 ml 1140 ml Intake Oral 240 ml IV Total 300 ml 900 ml # Voids 2 3 Laboratory Tests 10/10/17 05:33: White Blood Count 6.1, Red Blood Count 4.38L, Hemoglobin 13.4L, Hematocrit 38.3L , Mean Corpuscular Volume 88, Mean Corpuscular Hemoglobin 30.6, Mean Corpuscular Hemoglobin Concent 35.0, Red Cell Distribution Width 11.5L, Platelet Count 180, Mean Platelet Volume 6.3L, Neutrophils (%) (Auto) 65.1, Lymphocytes (%) (Auto) 20.4, Monocytes (%) (Auto) 13.7H, Eosinophils (%) (Auto) 0.3, Basophils (%) (Auto) 0.5, Erythrocyte Sedimentation Rate [Pending], Sodium Level 135L, Potassium Level 3.4L, Chloride Level 101, Carbon Dioxide Level 24, Anion Gap 11, Blood Urea Nitrogen 8, Creatinine 0.7, Estimat Glomerular Filtration Rate > 60, Glucose Level 127H, Calcium Level 8.8, Total Bilirubin 0.3 , Aspartate Amino Transf (AST/SGOT) 72H, Alanine Aminotransferase (ALT/SGPT) 77 , Alkaline Phosphatase 57, C-Reactive Protein, Quantitative 6.9H, Total Protein 6.9, Albumin 3.0L, Globulin 3.9, Albumin/Globulin Ratio 0.8L Height (Feet): 5 Height (Inches): 9.00 Weight (Pounds): 155 General Appearance: alert EENT: normal ENT inspection Neck: supple Cardiovascular: normal rate Respiratory/Chest: lungs clear Abdomen: normal bowel sounds, non tender, soft Extremities: non-tender Hammad Scott MD Oct 10, 2017 08:06
[2017-10-10] MEDS: Heparin 5000 units/ml inj SUBQ SCH ×2 (09:00→20:55)
--- NOTE | 2017-10-10 11:16 | General Surgery Progress Note ---
General Surgery-Progress Note Subjective Symptoms: improved, pain absent, passing flatus Additional Comments still does not want to eat much. no pain. no n/v/f/c. Objective Last 24 Hour Vital Signs Date Time Temp Pulse Resp B/P (MAP) Pulse Ox O2 Delivery O2 Flow Rate FiO2 10/10/17 09:00 Room Air 10/10/17 08:00 97.7 67 16 112/78 (89) 95 97.7 10/10/17 04:00 98.3 68 19 118/72 (87) 96 98.3 10/10/17 00:00 99.1 72 19 123/87 (99) 100 99.1 10/09/17 21:00 Room Air 10/09/17 20:00 99.6 71 19 123/83 (96) 97 99.6 10/09/17 16:00 98.5 77 18 133/90 (104) 98 98.5 10/09/17 12:00 98.2 78 22 130/88 (102) 97 98.2 I&O Intake and Output 10/09/17 10/10/17 19:00 07:00 Intake Total 300 ml 1140 ml Balance 300 ml 1140 ml Intake Oral 240 ml IV Total 300 ml 900 ml # Voids 2 3 Drains: none Cardiovascular: RSR Respiratory: clear Abdomen: soft, flat, non-tender, present bowel sounds Extremities: no edema, no tenderness, no cyanosis Laboratory Tests Test 10/10/17 05:33 10/10/17 08:37 White Blood Count 6.1 K/UL (4.8-10.8) Red Blood Count 4.38 M/UL (4.70-6.10) L Hemoglobin 13.4 G/DL (14.2-18.0) L Hematocrit 38.3 % (42.0-52.0) L Mean Corpuscular Volume 88 FL (80-99) Mean Corpuscular Hemoglobin 30.6 PG (27.0-31.0) Mean Corpuscular Hemoglobin Concent 35.0 G/DL (32.0-36.0) Red Cell Distribution Width 11.5 % (11.6-14.8) L Platelet Count 180 K/UL (150-450) Mean Platelet Volume 6.3 FL (6.5-10.1) L Neutrophils (%) (Auto) 65.1 % (45.0-75.0) Lymphocytes (%) (Auto) 20.4 % (20.0-45.0) Monocytes (%) (Auto) 13.7 % (1.0-10.0) H Eosinophils (%) (Auto) 0.3 % (0.0-3.0) Basophils (%) (Auto) 0.5 % (0.0-2.0) Erythrocyte Sedimentation Rate 78 MM/HR (0-20) H Sodium Level 135 MMOL/L (136-145) L Potassium Level 3.4 MMOL/L (3.5-5.1) L Chloride Level 101 MMOL/L (98-107) Carbon Dioxide Level 24 MMOL/L (21-32) Anion Gap 11 mmol/L (5-15) Blood Urea Nitrogen 8 mg/dL (7-18) Creatinine 0.7 MG/DL (0.55-1.30) Estimat Glomerular Filtration Rate > 60 mL/min (>60) Glucose Level 127 MG/DL (74-106) H Calcium Level 8.8 MG/DL (8.5-10.1) Total Bilirubin 0.3 MG/DL (0.2-1.0) Aspartate Amino Transf (AST/SGOT) 72 U/L (15-37) H Alanine Aminotransferase (ALT/SGPT) 77 U/L (12-78) Alkaline Phosphatase 57 U/L (46-116) C-Reactive Protein, Quantitative 6.9 mg/dL (0.00-0.90) H Total Protein 6.9 G/DL (6.4-8.2) Albumin 3.0 G/DL (3.4-5.0) L Globulin 3.9 g/dL Albumin/Globulin Ratio 0.8 (1.0-2.7) L Urine Opiates Screen Negative (NEGATIVE) Urine Barbiturates Screen Negative (NEGATIVE) Phencyclidine (PCP) Screen Negative (NEGATIVE) Urine Amphetamines Screen Negative (NEGATIVE) Urine Benzodiazepines Screen Negative (NEGATIVE) Urine Cocaine Screen Negative (NEGATIVE) Urine Marijuana (THC) Screen Positive (NEGATIVE) H Plan Problems: (1) SBO (small bowel obstruction) Assessment & Plan: 52 year old male with possible partial SBO. afebrile, HD stable, labs as above. exam with mild distention, hypoactive bowel sounds, umbilical hernia, no tenderness noted. CT okay small bowel follow through went okay. no obstruction. passing flatus. +BM exam benign. labs okay likely enteritis resolving -diet as tolerated - full liquids -IV fluids -will follow with recs thank you for this consultation (2) Nausea, vomiting, and diarrhea Gucci Scales Oct 10, 2017 11:16
[2017-10-10 12:00] VITALS: BP 119/79
--- NOTE | 2017-10-10 13:36 | General Progress Note ---
Assessment/Plan Assessment/Plan Problem List: (1) Proteinuria ICD Codes: R80.9 - Proteinuria, unspecified SNOMED: 63503758 (2) Nausea, vomiting, and diarrhea ICD Codes: R11.2 - Nausea with vomiting, unspecified; R19.7 - Diarrhea, unspecified SNOMED: 6367098 (3) History of umbilical hernia repair ICD Codes: Z98.890 - Other specified postprocedural states; Z87.19 - Personal history of other diseases of the digestive system SNOMED: 904386895 Status: stable, progressing Assessment/Plan - GI and general surgery consulted, appreciate recs - no SBO - nephrology consult for proteinuria - IV levaquin and flagyl - CT a/p reviewed - f/u XR small bowel series - neg - f/u stool culture, ova and parasites- pending. - WBC in stool (pos), C. diff (neg) - possible EgD on Thursday - NPO - IVF - pain control, antiemetics, and supportive care DVT ppx: HSQ 48 min spent on this case, 25 min on counseling and care coordination. Time of note may not reflect time of encounter. Subjective Date patient seen: Oct 10, 2017 Allergies: Coded Allergies: LATEX (Verified Allergy, Unknown, 10/06/17) PENICILLINS (Verified Allergy, Unknown, 10/06/17) Subjective no acute events afeb and hds studies pending awaiting nephro eval Objective Last 24 Hour Vital Signs Date Time Temp Pulse Resp B/P (MAP) Pulse Ox O2 Delivery O2 Flow Rate FiO2 10/10/17 12:00 98.2 67 22 119/79 (92) 97 98.2 10/10/17 09:00 Room Air 10/10/17 08:00 97.7 67 16 112/78 (89) 95 97.7 10/10/17 04:00 98.3 68 19 118/72 (87) 96 98.3 10/10/17 00:00 99.1 72 19 123/87 (99) 100 99.1 10/09/17 21:00 Room Air 10/09/17 20:00 99.6 71 19 123/83 (96) 97 99.6 10/09/17 16:00 98.5 77 18 133/90 (104) 98 98.5 Intake and Output 10/09/17 10/10/17 19:00 07:00 Intake Total 300 ml 1240 ml Balance 300 ml 1240 ml Intake Oral 240 ml IV Total 300 ml 1000 ml # Voids 2 3 Laboratory Tests 10/10/17 05:33: White Blood Count 6.1, Red Blood Count 4.38L, Hemoglobin 13.4L, Hematocrit 38.3L , Mean Corpuscular Volume 88, Mean Corpuscular Hemoglobin 30.6, Mean Corpuscular Hemoglobin Concent 35.0, Red Cell Distribution Width 11.5L, Platelet Count 180, Mean Platelet Volume 6.3L, Neutrophils (%) (Auto) 65.1, Lymphocytes (%) (Auto) 20.4, Monocytes (%) (Auto) 13.7H, Eosinophils (%) (Auto) 0.3, Basophils (%) (Auto) 0.5, Erythrocyte Sedimentation Rate 78H, Sodium Level 135L, Potassium Level 3.4L, Chloride Level 101, Carbon Dioxide Level 24, Anion Gap 11, Blood Urea Nitrogen 8, Creatinine 0.7, Estimat Glomerular Filtration Rate > 60, Glucose Level 127H, Calcium Level 8.8, Total Bilirubin 0.3, Aspartate Amino Transf (AST/SGOT) 72H, Alanine Aminotransferase (ALT/SGPT) 77, Alkaline Phosphatase 57, C-Reactive Protein, Quantitative 6.9H, Total Protein 6.9, Albumin 3.0L, Globulin 3.9, Albumin/Globulin Ratio 0.8L 10/10/17 08:37: Urine Opiates Screen Negative, Urine Barbiturates Screen Negative, Phencyclidine (PCP) Screen Negative, Urine Amphetamines Screen Negative, Urine Benzodiazepines Screen Negative, Urine Cocaine Screen Negative, Urine Marijuana (THC) Screen PositiveH Height (Feet): 5 Height (Inches): 9.00 Weight (Pounds): 155 Objective General Appearance: no apparent distress, alert HEENT: normocephalic, atraumatic Neck: non-tender, normal alignment, supple Respiratory/Chest: chest wall non-tender, lungs clear, normal breath sounds Cardiovascular/Chest: normal peripheral pulses, normal rate, regular rhythm Abdomen: soft, hypoactive bowel sounds, tender Extremities: normal range of motion, non-tender Skin Exam: normal pigmentation, warm/dry 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
--- NOTE | 2017-10-10 15:35 | Nephrology Progress Note ---
Assessment/Plan Assessment/Plan #[id number] Full consult dictated. Subjective Allergies: Coded Allergies: LATEX (Verified Allergy, Unknown, 10/06/17) PENICILLINS (Verified Allergy, Unknown, 10/06/17) Subjective #[id number] Full consult dictated. Objective Last 24 Hour Vital Signs Date Time Temp Pulse Resp B/P (MAP) Pulse Ox O2 Delivery O2 Flow Rate FiO2 10/10/17 12:00 98.2 67 22 119/79 (92) 97 98.2 10/10/17 09:00 Room Air 10/10/17 08:00 97.7 67 16 112/78 (89) 95 97.7 10/10/17 04:00 98.3 68 19 118/72 (87) 96 98.3 10/10/17 00:00 99.1 72 19 123/87 (99) 100 99.1 10/09/17 21:00 Room Air 10/09/17 20:00 99.6 71 19 123/83 (96) 97 99.6 10/09/17 16:00 98.5 77 18 133/90 (104) 98 98.5 Intake and Output 10/09/17 10/10/17 19:00 07:00 Intake Total 300 ml 1240 ml Balance 300 ml 1240 ml Intake Oral 240 ml IV Total 300 ml 1000 ml # Voids 2 3 Laboratory Tests 10/10/17 05:33: White Blood Count 6.1, Red Blood Count 4.38L, Hemoglobin 13.4L, Hematocrit 38.3L , Mean Corpuscular Volume 88, Mean Corpuscular Hemoglobin 30.6, Mean Corpuscular Hemoglobin Concent 35.0, Red Cell Distribution Width 11.5L, Platelet Count 180, Mean Platelet Volume 6.3L, Neutrophils (%) (Auto) 65.1, Lymphocytes (%) (Auto) 20.4, Monocytes (%) (Auto) 13.7H, Eosinophils (%) (Auto) 0.3, Basophils (%) (Auto) 0.5, Erythrocyte Sedimentation Rate 78H, Sodium Level 135L, Potassium Level 3.4L, Chloride Level 101, Carbon Dioxide Level 24, Anion Gap 11, Blood Urea Nitrogen 8, Creatinine 0.7, Estimat Glomerular Filtration Rate > 60, Glucose Level 127H, Calcium Level 8.8, Total Bilirubin 0.3, Aspartate Amino Transf (AST/SGOT) 72H, Alanine Aminotransferase (ALT/SGPT) 77, Alkaline Phosphatase 57, C-Reactive Protein, Quantitative 6.9H, Total Protein 6.9, Albumin 3.0L, Globulin 3.9, Albumin/Globulin Ratio 0.8L 10/10/17 08:37: Urine Opiates Screen Negative, Urine Barbiturates Screen Negative, Phencyclidine (PCP) Screen Negative, Urine Amphetamines Screen Negative, Urine Benzodiazepines Screen Negative, Urine Cocaine Screen Negative, Urine Marijuana (THC) Screen PositiveH Height (Feet): 5 Height (Inches): 9.00 Weight (Pounds): 155 Randy Kemp M.D. Oct 10, 2017 15:35
[2017-10-10 16:00] VITALS: BP 120/81
[2017-10-10 17:19] LABS: APPEARANCE,URINE CLEAR; BILIRUBIN, URINE NEGATIVE (NEGATIVE); COLOR,URINE AMBER; GLUCOSE, URINE (UA) NEGATIVE (NEGATIVE); KETONES,URINE NEGATIVE (NEGATIVE); LEUKOCYTE ESTERASE ,URINE 1+ (NEGATIVE); NITRITE,URINE NEGATIVE (NEGATIVE); PH,URINE 8 (4.5-8.0); PROTEIN,URINE NEGATIVE (NEGATIVE); UROBILINOGEN,URINE NORMAL MG/DL (0.0-1.0)
[2017-10-10 20:00] VITALS: BP 125/89
--- NOTE | 2017-10-10 20:15 | Consultation ---
DATE OF CONSULTATION: 10/10/2017 CONSULTING PHYSICIAN: Randy Kemp M.D. REFERRING PHYSICIAN: Dr. Meek Pena of [facility]. REASON FOR CONSULTATION: Proteinuria. HISTORY OF PRESENT ILLNESS: The patient is a 52-year-old gentleman who was admitted approximately 3 days prior for further evaluation and care of nausea, vomiting, and diarrhea. During this interval, the patient has been evaluated by Gastroenterology and General Surgery. CT of the abdomen and pelvis did show fluid-filled dilated small bowel loops and possible mild enteritis. IV antibiotics have been initiated. During this time, urinalysis was conducted, which did show 2+ protein. Conversation with the patient notes that he had been told by his primary care physician recently that his urinalysis also had protein in the urine. The patient is up in the room, in no acute distress. Renal function is normal. His last creatinine today was 0.7. PAST MEDICAL HISTORY: 1. Proteinuria. 2. Hyperlipidemia. 3. Constipation. ALLERGIES: To latex and penicillin. CURRENT MEDICATIONS: Reviewed medication reconciliation list. SOCIAL HISTORY: Positive for marijuana use. No current alcohol or other illicit drug use. FAMILY HISTORY: Noncontributory. REVIEW OF SYSTEMS: NEUROLOGIC: The patient denies headache, change in vision, syncope, or presyncopal episodes. CARDIOVASCULAR: No current chest pain, palpitations, or angina. PULMONARY: No difficulty breathing, productive cough, or sputum. GASTROINTESTINAL/GENITOURINARY: The patient having nausea, vomiting, and diarrhea. ENDOCRINOLOGY: No night sweats, fevers, or chills. PHYSICAL EXAMINATION: GENERAL: The patient awake, alert, not otherwise in distress. VITAL SIGNS: Blood pressure 119/79, respiratory rate 22, pulse 67, temperature 98.2 degrees, and 97% oxygen on room air. HEENT: Extraocular muscles intact. No lymphadenopathy noted. CARDIOVASCULAR: S1 and S2. No rubs or gallops. PULMONARY: Clear to auscultation bilaterally. No rales, rhonchi or wheezes. ABDOMEN: Nondistended, nontender. EXTREMITIES: No edema noted. LABORATORY AND DIAGNOSTIC DATA: Labs dated 10/10/2017, sodium 131, potassium 3.4, creatinine 0.7, calcium 8.8. White cell count 6.1, hemoglobin 13.4, and platelet count 180. ASSESSMENT AND PLAN: 1. Proteinuria. At this time, the exact amount of protein in urine unknown. There was 2+ protein in his urinalysis. We will do a proteinuria workup. A 24-hour urine protein will be collected as well as initiating secondary etiologies of proteinuria. We will check an SPEP, UPEP, hepatitis panel, LULA, and anti-smooth. Depending on the level proteinuria and the results of second radiology workup, we will then proceed accordingly. If need be, the patient will require or undergo a renal biopsy pending the results of the 24- hour urine test and proteinuria workup. 2. Nausea, vomiting, diarrhea. Defer management to Gastroenterology and General Surgery. 3. Dehydration. Continue IV fluids. 4. Hypokalemia. The patient currently on replacement. Let me take this opportunity to thank Dr. Pena for allowing me to assist in the care of this patient. We will continue to see this patient on a daily basis. Randy Kemp MD DR: JENNIFER JOB#: [id number] CC:
[2017-10-11] VITALS: BP 126/87
[2017-10-11 04:00] VITALS: BP 131/77
[2017-10-11] MEDS: D5 1/2NS w/KCl 40meq 1000ml 1,000 ML IV SCH ×2 (05:18)
[2017-10-11 07:39] LABS: BASOPHILS % (AUTO) 0.4 % (0.0-2.0); HEMATOCRIT 40.9 % (42.0-52.0); HEMOGLOBIN 14.5 G/DL (14.2-18.0); LYMPHOCYTES % (AUTO) 28.1 % (20.0-45.0); MEAN CORPUSCULAR VOLUME 89 FL (80-99); MONOCYTES % (AUTO) 11.4 % (1.0-10.0); NEUTROPHILS % (AUTO) 59.1 % (45.0-75.0); PLATELET COUNT 228 K/UL (150-450); RED BLOOD COUNT 4.62 M/UL (4.70-6.10); RED CELL DISTRIBUTION WIDTH 11.7 % (11.6-14.8); WHITE BLOOD COUNT 5.7 K/UL (4.8-10.8)
[2017-10-11 07:54] LABS: AMYLASE 51 U/L (25-115)
[2017-10-11 07:56] LABS: ALANINE AMINOTRANSFERASE 83 U/L (12-78); ALBUMIN 3.3 G/DL (3.4-5.0); ALBUMIN/GLOBULIN RATIO 0.8 (1.0-2.7); ALKALINE PHOSPHATASE 62 U/L (46-116); ANION GAP 12 mmol/L (5-15); ASPARTATE AMINO TRANSFERASE 64 U/L (15-37); BILIRUBIN,TOTAL 0.4 MG/DL (0.2-1.0); BLOOD UREA NITROGEN 5 mg/dL (7-18); CALCIUM 9.2 MG/DL (8.5-10.1); CARBON DIOXIDE 24 MMOL/L (21-32); CHLORIDE 101 MMOL/L (98-107); CREATININE 0.6 MG/DL (0.55-1.30); POTASSIUM 3.4 MMOL/L (3.5-5.1); SODIUM 137 MMOL/L (136-145)
[2017-10-11 08:00] VITALS: BP 134/73
--- NOTE | 2017-10-11 08:34 | General Progress Note ---
Assessment/Plan Problem List: (1) Diarrhea ICD Codes: R19.7 - Diarrhea, unspecified SNOMED: 21784303 (2) Vomiting ICD Codes: R11.10 - Vomiting, unspecified SNOMED: 578716989 (3) Nausea, vomiting, and diarrhea ICD Codes: R11.2 - Nausea with vomiting, unspecified; R19.7 - Diarrhea, unspecified SNOMED: 5447957 (4) History of umbilical hernia repair ICD Codes: Z98.890 - Other specified postprocedural states; Z87.19 - Personal history of other diseases of the digestive system SNOMED: 875984606 (5) Cannabinoid hyperemesis syndrome ICD Codes: F12.988 - Cannabis use, unspecified with other cannabis-induced disorder SNOMED: 933154132, 297154721 Assessment/Plan advance diet to soft diet stool studiesok to dc GI stand point Subjective ROS Limited/Unobtainable: Yes Allergies: Coded Allergies: LATEX (Verified Allergy, Unknown, 10/06/17) PENICILLINS (Verified Allergy, Unknown, 10/06/17) Subjective feeling better Objective Last 24 Hour Vital Signs Date Time Temp Pulse Resp B/P (MAP) Pulse Ox O2 Delivery O2 Flow Rate FiO2 10/11/17 04:00 98.8 65 19 131/77 (95) 96 98.8 10/11/17 00:00 99.2 73 19 126/87 (100) 96 99.2 10/10/17 21:00 Room Air 10/10/17 20:00 98.7 72 19 125/89 (101) 97 98.7 10/10/17 16:00 99.0 68 22 120/81 (94) 99 99.0 10/10/17 12:00 98.2 67 22 119/79 (92) 97 98.2 10/10/17 09:00 Room Air Intake and Output 10/10/17 10/11/17 19:00 07:00 Intake Total 1570 ml 1550 ml Balance 1570 ml 1550 ml Intake Oral 480 ml 550 ml IV Total 1090 ml 1000 ml # Voids 1 4 Laboratory Tests 10/10/17 08:37: Urine Opiates Screen Negative, Urine Barbiturates Screen Negative, Phencyclidine (PCP) Screen Negative, Urine Amphetamines Screen Negative, Urine Benzodiazepines Screen Negative, Urine Cocaine Screen Negative, Urine Marijuana (THC) Screen PositiveH 10/10/17 16:49: Urine Color [place], Urine Appearance Clear, Urine pH 8, Urine Specific [place] 1.010, Urine Protein Negative, Urine Glucose (UA) Negative, Urine Ketones Negative, Urine Occult Blood 2+H, Urine Nitrite Negative, Urine Bilirubin Negative, Urine Ictotest Negative, Urine Urobilinogen Normal, Urine Leukocyte Esterase 1+H, Urine RBC 10-15H, Urine WBC 2-4, Urine Squamous Epithelial Cells Occasional, Urine Bacteria Few 10/11/17 05:52: White Blood Count 5.7, Red Blood Count 4.62L, Hemoglobin 14.5, Hematocrit 40.9L , Mean Corpuscular Volume 89, Mean Corpuscular Hemoglobin 31.3H, Mean Corpuscular Hemoglobin Concent 35.4, Red Cell Distribution Width 11.7, Platelet Count 228, Mean Platelet Volume 6.1L, Neutrophils (%) (Auto) 59.1, Lymphocytes ( %) (Auto) 28.1, Monocytes (%) (Auto) 11.4H, Eosinophils (%) (Auto) 1.0, Basophils (%) (Auto) 0.4, Sodium Level 137, Potassium Level 3.4L, Chloride Level 101, Carbon Dioxide Level 24, Anion Gap 12, Blood Urea Nitrogen 5L, Creatinine 0.6, Estimat Glomerular Filtration Rate > 60, Glucose Level 93, Calcium Level 9.2, Total Bilirubin 0.4, Aspartate Amino Transf (AST/SGOT) 64H, Alanine Aminotransferase (ALT/SGPT) 83H, Alkaline Phosphatase 62, Total Protein 7.4, Total Protein (PEP) [Pending], Albumin 3.3L, Albumin (PEP) [Pending], Globulin 4.1, Globulin (PEP) [Pending], Albumin/Globulin Ratio [Pending], Alpha- 1-Globulins [Pending], [id number]-1-Yptigqjjb [Pending], Beta Globulins [Pending], Beta Gamma Globulin [Pending], PEP Abnormal Protein Bands [Pending], Protein Electrophoresis Interpret [Pending], Amylase Level 51, Lipase 253, Anti-Nuclear Antibody Screen [Pending], Anti-Double Strand DNA Antibody [Pending], Hepatitis A IgM Antibody [Pending], Hepatitis B Surface Antigen [Pending], Hepatitis B Core IgM Antibody [Pending], Hepatitis C Antibody [Pending] Height (Feet): 5 Height (Inches): 9.00 Weight (Pounds): 155 General Appearance: alert EENT: normal ENT inspection Neck: supple Cardiovascular: normal rate Respiratory/Chest: lungs clear Abdomen: normal bowel sounds, non tender, soft Extremities: non-tender Hammad Scott MD Oct 11, 2017 08:34
[2017-10-11] MEDS: Heparin 5000 units/ml inj SUBQ SCH (08:44)
--- NOTE | 2017-10-11 10:12 | Nephrology Progress Note ---
Assessment/Plan Assessment/Plan 1. Proteinuria - patient not diabetic or hypertensive - etiology work up under way - 24 hr urine protein quantification, SPEP/UPEP/LULA/Hep panel - patient can f/u as outpt for results. Renal biopsy a consideration pending results of work up 2. Hypokalemia- due to diarrhea, will replace 3. N/V/D- per PCp and GI mgmt Subjective Date patient seen: Oct 11, 2017 Time patient seen: 10:06 ROS Limited/Unobtainable: No Gastrointestinal/Abdominal: Reports: diarrhea Allergies: Coded Allergies: LATEX (Verified Allergy, Unknown, 10/06/17) PENICILLINS (Verified Allergy, Unknown, 10/06/17) All Systems: reviewed and negative except above Subjective Patient still having loose stools Objective Last 24 Hour Vital Signs Date Time Temp Pulse Resp B/P (MAP) Pulse Ox O2 Delivery O2 Flow Rate FiO2 10/11/17 08:15 Room Air 10/11/17 08:00 98.2 66 17 134/73 (93) 98 98.2 10/11/17 04:00 98.8 65 19 131/77 (95) 96 98.8 10/11/17 00:00 99.2 73 19 126/87 (100) 96 99.2 10/10/17 21:00 Room Air 10/10/17 20:00 98.7 72 19 125/89 (101) 97 98.7 10/10/17 16:00 99.0 68 22 120/81 (94) 99 99.0 10/10/17 12:00 98.2 67 22 119/79 (92) 97 98.2 Intake and Output 10/10/17 10/11/17 19:00 07:00 Intake Total 1570 ml 1550 ml Balance 1570 ml 1550 ml Intake Oral 480 ml 550 ml IV Total 1090 ml 1000 ml # Voids 1 4 Laboratory Tests 10/10/17 16:49: Urine Color [place], Urine Appearance Clear, Urine pH 8, Urine Specific [place] 1.010, Urine Protein Negative, Urine Glucose (UA) Negative, Urine Ketones Negative, Urine Occult Blood 2+H, Urine Nitrite Negative, Urine Bilirubin Negative, Urine Ictotest Negative, Urine Urobilinogen Normal, Urine Leukocyte Esterase 1+H, Urine RBC 10-15H, Urine WBC 2-4, Urine Squamous Epithelial Cells Occasional, Urine Bacteria Few 10/11/17 05:52: White Blood Count 5.7, Red Blood Count 4.62L, Hemoglobin 14.5, Hematocrit 40.9L , Mean Corpuscular Volume 89, Mean Corpuscular Hemoglobin 31.3H, Mean Corpuscular Hemoglobin Concent 35.4, Red Cell Distribution Width 11.7, Platelet Count 228, Mean Platelet Volume 6.1L, Neutrophils (%) (Auto) 59.1, Lymphocytes ( %) (Auto) 28.1, Monocytes (%) (Auto) 11.4H, Eosinophils (%) (Auto) 1.0, Basophils (%) (Auto) 0.4, Sodium Level 137, Potassium Level 3.4L, Chloride Level 101, Carbon Dioxide Level 24, Anion Gap 12, Blood Urea Nitrogen 5L, Creatinine 0.6, Estimat Glomerular Filtration Rate > 60, Glucose Level 93, Calcium Level 9.2, Total Bilirubin 0.4, Aspartate Amino Transf (AST/SGOT) 64H, Alanine Aminotransferase (ALT/SGPT) 83H, Alkaline Phosphatase 62, Total Protein 7.4, Total Protein (PEP) [Pending], Albumin 3.3L, Albumin (PEP) [Pending], Globulin 4.1, Globulin (PEP) [Pending], Albumin/Globulin Ratio [Pending], Alpha- 1-Globulins [Pending], Pzccj-5-Kjqqbjuof [Pending], Beta Globulins [Pending], Beta Gamma Globulin [Pending], PEP Abnormal Protein Bands [Pending], Protein Electrophoresis Interpret [Pending], Amylase Level 51, Lipase 253, Anti-Nuclear Antibody Screen [Pending], Anti-Double Strand DNA Antibody [Pending], Hepatitis A IgM Antibody [Pending], Hepatitis B Surface Antigen [Pending], Hepatitis B Core IgM Antibody [Pending], Hepatitis C Antibody [Pending] Height (Feet): 5 Height (Inches): 9.00 Weight (Pounds): 155 General Appearance: WD/WN, no apparent distress EENT: PERRL/EOMI Neck: non-tender, normal alignment, supple Cardiovascular: normal peripheral pulses, normal rate, regular rhythm Respiratory/Chest: chest wall non-tender, lungs clear, normal breath sounds Abdomen: normal bowel sounds, non tender, soft Edema: no edema noted Arm (L), no edema noted Arm (R), no edema noted Leg (L), no edema noted Leg (R), no edema noted Pedal (L), no edema noted Pedal (R), no edema noted Generalized Randy Kemp M.D. Oct 11, 2017 10:12
[2017-10-11] MEDS ORDERED: D5 1/2NS w/KCl 40meq 1000ml 1,000 ML IV SCH (11:00)
--- NOTE | 2017-10-11 11:37 | General Surgery Progress Note ---
General Surgery-Progress Note Subjective Additional Comments no acute events. doing well. no longer with n/v. Objective Last 24 Hour Vital Signs Date Time Temp Pulse Resp B/P (MAP) Pulse Ox O2 Delivery O2 Flow Rate FiO2 10/11/17 08:15 Room Air 10/11/17 08:00 98.2 66 17 134/73 (93) 98 98.2 10/11/17 04:00 98.8 65 19 131/77 (95) 96 98.8 10/11/17 00:00 99.2 73 19 126/87 (100) 96 99.2 10/10/17 21:00 Room Air 10/10/17 20:00 98.7 72 19 125/89 (101) 97 98.7 10/10/17 16:00 99.0 68 22 120/81 (94) 99 99.0 10/10/17 12:00 98.2 67 22 119/79 (92) 97 98.2 I&O Intake and Output 10/10/17 10/11/17 19:00 07:00 Intake Total 1570 ml 1550 ml Balance 1570 ml 1550 ml Intake Oral 480 ml 550 ml IV Total 1090 ml 1000 ml # Voids 1 4 Drains: none Cardiovascular: RSR Respiratory: clear Abdomen: soft, non-tender, present bowel sounds Extremities: no cyanosis Laboratory Tests Test 10/10/17 16:49 10/11/17 05:52 Urine Color [place] Urine Appearance Clear Urine pH 8 (4.5-8.0) Urine Specific Susan 1.010 (1.005-1.035) Urine Protein Negative (NEGATIVE) Urine Glucose (UA) Negative (NEGATIVE) Urine Ketones Negative (NEGATIVE) Urine Occult Blood 2+ (NEGATIVE) H Urine Nitrite Negative (NEGATIVE) Urine Bilirubin Negative (NEGATIVE) Urine Ictotest Negative Urine Urobilinogen Normal MG/DL (0.0-1.0) Urine Leukocyte Esterase 1+ (NEGATIVE) H Urine RBC 10-15 /HPF (0 - 0) H Urine WBC 2-4 /HPF (0 - 0) Urine Squamous Epithelial Cells Occasional /LPF Urine Bacteria Few /HPF (NONE) White Blood Count 5.7 K/UL (4.8-10.8) Red Blood Count 4.62 M/UL (4.70-6.10) L Hemoglobin 14.5 G/DL (14.2-18.0) Hematocrit 40.9 % (42.0-52.0) L Mean Corpuscular Volume 89 FL (80-99) Mean Corpuscular Hemoglobin 31.3 PG (27.0-31.0) H Mean Corpuscular Hemoglobin Concent 35.4 G/DL (32.0-36.0) Red Cell Distribution Width 11.7 % (11.6-14.8) Platelet Count 228 K/UL (150-450) Mean Platelet Volume 6.1 FL (6.5-10.1) L Neutrophils (%) (Auto) 59.1 % (45.0-75.0) Lymphocytes (%) (Auto) 28.1 % (20.0-45.0) Monocytes (%) (Auto) 11.4 % (1.0-10.0) H Eosinophils (%) (Auto) 1.0 % (0.0-3.0) Basophils (%) (Auto) 0.4 % (0.0-2.0) Sodium Level 137 MMOL/L (136-145) Potassium Level 3.4 MMOL/L (3.5-5.1) L Chloride Level 101 MMOL/L (98-107) Carbon Dioxide Level 24 MMOL/L (21-32) Anion Gap 12 mmol/L (5-15) Blood Urea Nitrogen 5 mg/dL (7-18) L Creatinine 0.6 MG/DL (0.55-1.30) Estimat Glomerular Filtration Rate > 60 mL/min (>60) Glucose Level 93 MG/DL (74-106) Calcium Level 9.2 MG/DL (8.5-10.1) Total Bilirubin 0.4 MG/DL (0.2-1.0) Aspartate Amino Transf (AST/SGOT) 64 U/L (15-37) H Alanine Aminotransferase (ALT/SGPT) 83 U/L (12-78) H Alkaline Phosphatase 62 U/L (46-116) Total Protein 7.4 G/DL (6.4-8.2) Total Protein (PEP) Pending Albumin 3.3 G/DL (3.4-5.0) L Albumin (PEP) Pending Globulin 4.1 g/dL Globulin (PEP) Pending Albumin/Globulin Ratio Pending Nebib-8-Myrbmwmlb Pending Rjwkz-3-Ztnbqcnms Pending Beta Globulins Pending Beta Gamma Globulin Pending PEP Abnormal Protein Bands Pending Protein Electrophoresis Interpret Pending Amylase Level 51 U/L (25-115) Lipase 253 U/L (73-393) Anti-Nuclear Antibody Screen Pending Anti-Double Strand DNA Antibody Pending Hepatitis A IgM Antibody Pending Hepatitis B Surface Antigen Pending Hepatitis B Core IgM Antibody Pending Hepatitis C Antibody Pending Plan Problems: (1) SBO (small bowel obstruction) Assessment & Plan: 52 year old male with possible partial SBO. afebrile, HD stable, labs as above. exam with mild distention, hypoactive bowel sounds, umbilical hernia, no tenderness noted. CT okay small bowel follow through went okay. no obstruction. passing flatus. +BM exam benign. labs okay likely enteritis resolving -diet as tolerated - small frequent meals -IV fluids -will follow with recs -d/c planning thank you for this consultation (2) Nausea, vomiting, and diarrhea Gucci Scales Oct 11, 2017 11:37
[2017-10-11 12:00] VITALS: BP 141/91
[2017-10-11 16:00] VITALS: BP 140/82
--- NOTE | 2017-10-11 16:29 | General Progress Note ---
Assessment/Plan Assessment/Plan Problem List: (1) Proteinuria ICD Codes: R80.9 - Proteinuria, unspecified SNOMED: 75425352 (2) Nausea, vomiting, and diarrhea ICD Codes: R11.2 - Nausea with vomiting, unspecified; R19.7 - Diarrhea, unspecified SNOMED: 1284892 (3) History of umbilical hernia repair ICD Codes: Z98.890 - Other specified postprocedural states; Z87.19 - Personal history of other diseases of the digestive system SNOMED: 714672673 Status: stable, progressing Assessment/Plan - GI and general surgery consulted, appreciate recs - no SBO - suspected enterits - advance diet - nephrology consult for proteinuria, workup under way - IV levaquin and flagyl - CT a/p reviewed - f/u XR small bowel series - neg - f/u stool culture, ova and parasites- pending. - WBC in stool (pos), C. diff (neg) - possible EgD on Thursday - may defer to out pt - NPO - IVF - pain control, antiemetics, and supportive care DVT ppx: HSQ 48 min spent on this case, 25 min on counseling and care coordination. Time of note may not reflect time of encounter. Subjective Date patient seen: Oct 11, 2017 Allergies: Coded Allergies: LATEX (Verified Allergy, Unknown, 10/06/17) PENICILLINS (Verified Allergy, Unknown, 10/06/17) Subjective no acute events afeb and hds Objective Last 24 Hour Vital Signs Date Time Temp Pulse Resp B/P (MAP) Pulse Ox O2 Delivery O2 Flow Rate FiO2 10/11/17 12:00 98.0 74 17 141/91 (108) 98 98.0 10/11/17 08:15 Room Air 10/11/17 08:00 98.2 66 17 134/73 (93) 98 98.2 10/11/17 04:00 98.8 65 19 131/77 (95) 96 98.8 10/11/17 00:00 99.2 73 19 126/87 (100) 96 99.2 10/10/17 21:00 Room Air 10/10/17 20:00 98.7 72 19 125/89 (101) 97 98.7 Intake and Output 10/10/17 10/11/17 19:00 07:00 Intake Total 1570 ml 1550 ml Balance 1570 ml 1550 ml Intake Oral 480 ml 550 ml IV Total 1090 ml 1000 ml # Voids 1 4 Laboratory Tests 10/10/17 16:49: Urine Color [place], Urine Appearance Clear, Urine pH 8, Urine Specific [place] 1.010, Urine Protein Negative, Urine Glucose (UA) Negative, Urine Ketones Negative, Urine Occult Blood 2+H, Urine Nitrite Negative, Urine Bilirubin Negative, Urine Ictotest Negative, Urine Urobilinogen Normal, Urine Leukocyte Esterase 1+H, Urine RBC 10-15H, Urine WBC 2-4, Urine Squamous Epithelial Cells Occasional, Urine Bacteria Few 10/11/17 05:52: White Blood Count 5.7, Red Blood Count 4.62L, Hemoglobin 14.5, Hematocrit 40.9L , Mean Corpuscular Volume 89, Mean Corpuscular Hemoglobin 31.3H, Mean Corpuscular Hemoglobin Concent 35.4, Red Cell Distribution Width 11.7, Platelet Count 228, Mean Platelet Volume 6.1L, Neutrophils (%) (Auto) 59.1, Lymphocytes ( %) (Auto) 28.1, Monocytes (%) (Auto) 11.4H, Eosinophils (%) (Auto) 1.0, Basophils (%) (Auto) 0.4, Sodium Level 137, Potassium Level 3.4L, Chloride Level 101, Carbon Dioxide Level 24, Anion Gap 12, Blood Urea Nitrogen 5L, Creatinine 0.6, Estimat Glomerular Filtration Rate > 60, Glucose Level 93, Calcium Level 9.2, Total Bilirubin 0.4, Aspartate Amino Transf (AST/SGOT) 64H, Alanine Aminotransferase (ALT/SGPT) 83H, Alkaline Phosphatase 62, Total Protein 7.4, Total Protein (PEP) [Pending], Albumin 3.3L, Albumin (PEP) [Pending], Globulin 4.1, Globulin (PEP) [Pending], Albumin/Globulin Ratio [Pending], Alpha- 1-Globulins [Pending], Tgili-9-Nsjdblcmf [Pending], Beta Globulins [Pending], Beta Gamma Globulin [Pending], PEP Abnormal Protein Bands [Pending], Protein Electrophoresis Interpret [Pending], Amylase Level 51, Lipase 253, Anti-Nuclear Antibody Screen [Pending], Anti-Double Strand DNA Antibody [Pending], Hepatitis A IgM Antibody [Pending], Hepatitis B Surface Antigen [Pending], Hepatitis B Core IgM Antibody [Pending], Hepatitis C Antibody [Pending] Height (Feet): 5 Height (Inches): 9.00 Weight (Pounds): 155 Objective General Appearance: no apparent distress, alert HEENT: normocephalic, atraumatic Neck: non-tender, normal alignment, supple Respiratory/Chest: chest wall non-tender, lungs clear, normal breath sounds Cardiovascular/Chest: normal peripheral pulses, normal rate, regular rhythm Abdomen: soft, hypoactive bowel sounds, tender Extremities: normal range of motion, non-tender Skin Exam: normal pigmentation, warm/dry Neurologic: vp talent management II-XII grossly normal, no motor/sensory deficits, alert, oriented x 3 Meek Pena MD Oct 11, 2017 16:29
--- NOTE | 2017-10-11 17:44 | Discharge Summary ---
Discharge Summary Hospital Course Date of Admission Oct 08, 2017 at 17:26 Date of Discharge 10/11/2017 Admitting Diagnosis persistent vomiting, diarrhea HPI 52 year old male otherwise healthy presented to ED with complaints of abdominal pain, nausea, emesis, dehydration. States that 12 days ago he had developed vague generalized abdominal discomfort with associated nausea and emesis. Since he has come to ED for evaluation on two separate occasions and has been given IV fluids and discharged once symptoms resolved. He returns again today with similar complaints but states that now he cannot hold down any liquids and has fever and chills. history of umbilical hernia repair with mesh a few years ago but recurrence noted. inguinal hernia surgery when he was 7yo. Patient states that he has not had a bowel movement for 2 weeks but for the last 1 day has had diarrhea likely since the administration of the contrast. CT a/p showed fluid-filled dilated small bowel loops with possible mild enteritis. Today, patient continues to report nausea and vomiting with diarrhea. Patient had a reported fever of 102 last night but no f/c today. Denies cp, sob. Consultations Surgery, GI, Nephrology Hospital Course SBO ruled out. Resulted stool studies unremarkable. Suspect enteritis as etiology of symptoms which improved w/ levaquin and flagyl IV, will complete 7 days of PO as out pt. Diet advanced and not tolerating solids. Proteinuria workup sent by nephrology including 24 hr urine, pt will follow up w / nephro as out pt Discharge Condition Upon Discharge: improving Discharge Disposition Patient was discharged to Discharge Diagnoses: (1) Enteritis (2) Nausea, vomiting, and diarrhea (3) Vomiting (4) Proteinuria (5) Diarrhea Discharge Instructions Discharge Instructions Follow up with: PCP, Nephrology, GI Meek Pena MD Oct 11, 2017 17:44
[2017-10-11] MEDS ORDERED: METRONIDAZOLE500 MG ORAL (17:50)
[2017-10-11] MEDS ORDERED: CULTURELLE1 TAB GT (17:50)
[2017-10-11] MEDS ORDERED: LEVAQUIN500 MG ORAL (17:50)
== END 2017-10-11 18:35 | disposition home or self-care (01) | DRG 392 ==
LOC: EMR 17:20 → 4E 17:26 → EDBEDREQ 17:38
DX: K52.9 Noninfective gastroenteritis and colitis, unspecified (principal); R80.9 Proteinuria, unspecified; Z88.0 Allergy status to penicillin; Z91.040 Latex allergy status; E87.6 Hypokalemia; E86.0 Dehydration; K42.9 Umbilical hernia without obstruction or gangrene
CPT/HCPCS: 36415; 74177; 74250; 80053; 80061; 80307; 81001; 81003; 81050; 82150; 83690; 84165; 85025; 85610; 85651; 85730; 86039; 86140; 86225; 86705; 86709; 86803; 87045; 87081; 87205; 87324; 87340; 88104; 99285; J2405; J2765; J8499

== ENCOUNTER 2018-01-11 10:48 | Day surgery (SDC) | payer BC ==
[2018-01-11] VITALS (9 sets, daily range): BP systolic 105–123; BP diastolic 61–79
[~2018-01-11] VITALS: Ht 175.3 cm; Wt 74.8 kg
--- NOTE | 2018-01-11 09:07 | Pre-Procedure Note/Attestation ---
Pre-Procedure Note/Attestation Complete Prior to Procedure Planned Procedure: not applicable Procedure Narrative: laparoscopic umbilical/ventral hernia repair with mesh Indications for Procedure Pre-Operative Diagnosis: incisional ventral hernia Attestation I attest that I discussed the nature of the procedure; its benefits; risks and complications; and alternatives (and the risks and benefits of such alternatives ), prior to the procedure, with the patient (or the patient's legal passenger service representative). I attest that, if there was a reasonable possibility of needing a blood transfusion, the patient (or the patient's legal passenger service representative) was given the [facility] standardized written summary, pursuant to the Orestes Bro Blood Safety Act ([place] Health and Safety Code # 1645, as amended). I attest that I re-evaluated the patient just prior to the surgery and that there has been no change in the patient's H&P, except as documented below: Gucci Scales Jan 11, 2018 09:07
[~2018-01-11 10:48] MED LIST changes: +CULTURELLE1 TAB GT; +LEVAQUIN500 MG ORAL; +METRONIDAZOLE500 MG ORAL; +ceFAZolin sod 2 GM in D5W 110 ML IV ONE
[2018-01-11] MEDS ORDERED: Midazolam 2mg/2ml Inj ONE (11:03)
[2018-01-11] MEDS ORDERED: fentaNYL 100 mcg/2 mL IV ONE (11:03)
[2018-01-11] MEDS ORDERED: Lidocaine 1% MPF 10mg/ml 5ml ONE (11:07)
[2018-01-11] MEDS ORDERED: Sodium Chloride 10ml vial INJ ONE (11:07)
[2018-01-11] MEDS ORDERED: Propofol 200mg/20ml IV ONE (11:07)
[2018-01-11] MEDS ORDERED: Bupivacaine w/Epi 0.5% 30ml Vial INJ ONE (11:30)
[2018-01-11] MEDS ORDERED: Bacitracin 50000 Units Vial ONE (11:30)
[2018-01-11] MEDS ORDERED: SOMA350 MG PO (11:52)
[2018-01-11] MEDS ORDERED: BENADRYL25 M3 PO (11:52)
[2018-01-11] MEDS ORDERED: PROSCAR5 MG ORAL (11:52)
[2018-01-11] MEDS ORDERED: Zemuron 50mg/5ml Inj IV ONE (11:58)
[2018-01-11] MEDS ORDERED: NS Irrig 1000ml ONE (12:00)
[2018-01-11] MEDS ORDERED: LR 1000ml ONE (12:00)
[2018-01-11] MEDS ORDERED: Sterile Water Irrig 1000ml IRRIG ONE (12:00)
[2018-01-11] MEDS ORDERED: NS Irrig 1000ml IRRIG ONE (12:30)
[2018-01-11] MEDS ORDERED: LR 1000ml 1,000 ML IVLG SCH (12:44)
[2018-01-11] MEDS ORDERED: Hydromorphone 0.5mg/0.5ml inj IVP PRN (12:45)
[2018-01-11] MEDS ORDERED: DiphenhydrAMINE 50mg/ml Inj IVP PRN (12:45)
--- NOTE | 2018-01-11 12:51 | Anethesia Preoperative Eval ---
Anesthesia Pre-op PMH/ROS General Date of Evaluation: Jan 11, 2018 Time of Evaluation: 11:50 Anesthesiologist: Alberto ASA Score: ASA 2 Mallampati Score Class I : Soft palate, uvula, fauces, pillars visible Class II: Soft palate, uvula, fauces visible Class III: Soft palate, base of uvula visible Class IV: Only hard plate visible Mallampati Classification: Class II Surgeon: Loyda Diagnosis: Ventral hernia Surgical Procedure: Laparoscopic ventral herniorrhaphy Family History: no anesthesia problems Allergies: Coded Allergies: LATEX (Verified Allergy, Severe, 01/11/18) HIVES PENICILLINS (Verified Allergy, Severe, 01/11/18) HIVES, THROAT CLOSES Uncoded Allergies: EGGPLANT (Allergy, Severe, 01/11/18) HIVES, THROAT CLOSES SHELLFISH (Allergy, Severe, 01/11/18) HIVES, THROAT CLOSES Medications: see eMAR Patient NPO?: Yes NPO Date: Jan 10, 2018 NPO Time: 10:00 Past Medical History Cardiovascular: Denies: HTN, CAD, NH, valve dz, arrhythmia, other Pulmonary: Denies: asthma, COPD, JESSA, other Gastrointestinal/Genitourinary: Denies: GERD, CRI, ESRD, other Neurologic/Psychiatric: Denies: dementia, CVA, depression/anxiety, TIA, other Endocrine: Denies: DM, hypothyroidism, steroids, other HEENT: Denies: cataract (L), cataract (R), glaucoma, TE-MOAK (L), TE-MOAK (R), other Hematology/Immune: Denies: anemia, DVT, bleeding disorder, other Musculoskeletal/Integumentary: Denies: OA, RA, DJD, DDD, edema, other PMH Narrative: Hyperlipidemia, sinus allergies PSxH Narrative: Ventral herniorrhaphy, colonoscopy Anesthesia Pre-op Phys. Exam Physician Exam Last Vital Signs Date Time Temp Pulse Resp B/P (MAP) Pulse Ox O2 Delivery O2 Flow Rate FiO2 01/11/18 11:39 Room Air 01/11/18 11:37 97.8 62 18 105/63 95 97.8 Constitutional: NAD Neurologic: CN 2-12 intact Cardiovascular: RRR, no M/R/G Respiratory: CTA Gastrointestinal: S/NT/ND Airway Exam Mallampati Score: Class II MO: full ROM: full Teeth: intact Anesthesia Pre-op A/P Risk Assessment & Plan Assessment: Healthy male for laparoscopic ventral herniorrhaphy Plan: GETA Status Change Before Surgery: No Pre-Antibiotics Drug: Clindamycin 600mg Given Within 1 Hr of Incision: Yes Time Given: 12:15 Orestes Dominguez MD Jan 11, 2018 12:51
--- NOTE | 2018-01-11 12:52 | Immediate Post-Op Evaluation ---
Immediate Post-Op Evalulation Immediate Post-Op Evalulation Procedure: Laparoscopic ventral herniorrhaphy Date of Evaluation: Jan 11, 2018 Time of Evaluation: 11:55 IV Fluids: 650 Blood Pressure Systolic: 123 Blood Pressure Diastolic: 79 Pulse Rate: 65 Respiratory Rate: 11 O2 Sat by Pulse Oximetry: 98 Temperature (Fahrenheit): 97.8 Pain Score (1-10): 0 Nausea: No Vomiting: No Complications No complication Patient Status: reacts, patent, extubated, none Hydration Status: adequate Drug: Clindamycin 600mg Given Within 1 Hr of Incision: Yes Time Given: 12:15 Orestes Dominguez MD Jan 11, 2018 12:52
--- NOTE | 2018-01-11 13:55 | 48 Hour Post Anesthesia Eval ---
Post Anesthesia Evaluation Procedure: Laparoscopic ventral herniorrhaphy Date of Evaluation: Jan 11, 2018 Time of Evaluation: 14:15 Blood Pressure Systolic: 124 0: 77 Pulse Rate: 67 Respiratory Rate: 12 O2 Sat by Pulse Oximetry: 98 Airway: patent Nausea: No Vomiting: No Pain Intensity: 2 Hydration Status: adequate Cardiopulmonary Status: Stable Mental Status/LOC: patient returned to baseline Follow-up Care/Observations: As per surgery Post-Anesthesia Complications: No anesthetic complication Follow-up care needed: N/A Orestes Dominguez MD Jan 11, 2018 13:55
--- NOTE | 2018-01-11 14:23 | Brief Operative Note ---
Immediate Post Operative Note Operative Note Pre-op Diagnosis: incisional ventral hernia Procedure: 1. laparoscopic incisional ventral hernia repair with mesh 2. removal of prior malpositioned hernia mesh Post-op Diagnosis: same as pre-op Surgeon: mynor Anesthesiologist: hair Anesthesia: general, local Specimen: yes - 1. hernia sac contents. 2 prior mesh Complications: none Condition: stable Fluids: see records Estimated Blood Loss: minimal Drains: none Implant(s) used?: Yes - mesh Gucci Scales Jan 11, 2018 14:23
[2018-01-11] MEDS ORDERED: Tylenol #3 tab (300mg/30mg) ORAL PRN (14:30)
[2018-01-11] MEDS ORDERED: D5 1/2NS 1,000 ML IV SCH (14:30)
[2018-01-11] MEDS ORDERED: HYDROmorphone 1mg/ml Carpuject SUBQ PRN (14:30)
[2018-01-11] MEDS ORDERED: Norco 5mg/325mg tab ORAL PRN (14:30)
--- NOTE | 2018-01-11 22:30 | Operative Note - Dictated ---
DATE OF OPERATION: 01/11/2018 PREOPERATIVE DIAGNOSIS: Incisional ventral/umbilical hernia. POSTOPERATIVE DIAGNOSIS: Incisional ventral/umbilical hernia. OPERATION PERFORMED: 1. Laparoscopic incisional ventral hernia repair with mesh. 2. Removal of prior malpositioned hernia mesh. ATTENDING SURGEON: Gucci Scales M.D. CREDIT AND LOAN COLLECTIONS SUPERVISOR: None. ANESTHESIOLOGIST: Orestes Dominguez M.D. ANESTHESIA: General CHIEF OF PARTY. ESTIMATED BLOOD LOSS: Minimal. IV FLUIDS: Please see anesthesia records. COMPLICATIONS: None. DRAINS: None. SPECIMENS: 1. Hernia sac contents. 2. Prior hernia mesh. WOUND CLASSIFICATION: Class I. ANTIBIOTICS: Clindamycin given one hour prior to cut time. IMPLANTS: A Bard Ventralight hernia patch, lot number [id number], reference [id number], expiration 03/11/2019 was used. INDICATIONS FOR PROCEDURE: This 52-year-old male seen in Dr. Scales's office for evaluation of a ventral hernia. The patient states that he had umbilical/ventral hernia in the past, which was repaired with mesh in outside facility years ago. Since then it has recurred and is causing discomfort. On examination, the patient had a malpositioned hernia mesh that was fixed to the skin and mobile around the umbilicus and just lateral to it. There was a clear defect identified with reducible contents. Given these findings, surgery was indicated and recommended. Risks, benefits, and alternatives were discussed with the patient in detail who consented for surgery. Plans were for laparoscopic-assisted hernia repair. OPERATIVE NOTE: The patient taken to the operating room and placed on the operating table in supine position, bilateral arms out. All bony prominences were well padded. SCDs were placed. Preoperative time-out was taken identifying the patient, procedure, operative staff, and surgical staff. IV antibiotics were given one hour prior to cut time. General anesthesia was induced and the patient was intubated. The abdomen was clipped, prepped, and draped in the standard surgical fashion. We began by making a small left upper quadrant incision at pineda's point and using a Fios tip 5 mm trocar and camera inserted. The 5 mm trocar was inserted under direct visualization, going through the skin, subcutaneous tissue, anterior rectus sheath, rectus muscle, and posterior rectus sheath into the abdomen without complication. Once in the abdomen, the abdomen was insufflated to 12 to 15 mmHg. The abdomen was inspected. The right lobe of the liver had blunted edges, but looked otherwise healthy. The left lobe of the liver looked otherwise healthy as well. There were no inguinal hernias noted. The pelvis looked otherwise normal. The small bowel looked otherwise healthy as well as the omentum. There were no abdominal wall adhesions. There was a ventral hernia noted at the area of the umbilicus. In doing manual palpation, defect was identified and a malpositioned hernia mesh was noted. It was then identified that to properly repair this hernia, the prior mesh would require excision. A this time, an incision was made through the umbilicus and carried down to the fascia. The prior mesh was identified and excised and sent to pathology. Following this, the fascial edges were cleared and the hernia defect was identified. The fascial edge of the hernia defect was re-freshened. Approximately 1 cm overlap was circumferentially dissected through the defect hole. The laparoscope was then re-inserted and good closure could be noted without significant tension. At this time, a second trocar was placed in the left lower quadrant in a similar fashion with a 5 mm incision and a 5 mm trocar insertion under direct visualization. A Bard circular Ventralight coated mesh was then inserted through the hernia defect and appropriately positioned. The fascial defect was then closed primarily incorporating the slits of the mesh using 0 PDS interrupted sutures. No significant tension noted and closure satisfactory. Following this, the abdomen with insufflation identified the mesh in good positioning without any significant tension. A laparoscopic absorbable tacker was then used to tack the corners of the mesh in place as well as some tacking in the middle of the mesh to secure it. Once this was complete, the secondary trocars removed under visualization. The abdomen was slowly desufflated and the mesh placement was satisfactory without any complications. The secondary trocars removed under direct visualization. Of note, local anesthetic was infiltrated throughout the incision sites throughout the procedure for the patient's comfort. At this time, we began the closure beginning with closure of the umbilical incision using 4-0 Monocryl subcuticular interrupted sutures with tacking down the umbilicus. Following this, the laparoscopic portal sites were closed using 4-0 Monocryl subcuticular interrupted sutures. All wounds were cleansed and skin glue was placed with dressings. The patient tolerated the procedure well and was extubated and taken to postanesthetic care unit in stable condition and discharged home. Gucci Scales M.D. DR: Tamie JOB#: [id number] CC: CASI
== END 2018-01-11 13:45 | disposition home or self-care (01) ==
LOC: SUR 10:48
DX: K43.2 Incisional hernia without obstruction or gangrene (principal); E78.00 Pure hypercholesterolemia, unspecified; K58.9 Irritable bowel syndrome, unspecified; J30.2 Other seasonal allergic rhinitis; Z87.442 Personal history of urinary calculi; Z91.040 Latex allergy status; Z88.0 Allergy status to penicillin; Z91.013 Allergy to seafood; Z91.018 Allergy to other foods
CPT/HCPCS: 49654; C1781; J1170; J2250; J2405; J2704; J3010; S0077; 94003; 94150